=== PATIENT | female | born 1960 | race Caucasian/White ===

== ENCOUNTER 2019-07-31 12:18 | Outpatient (CLI) | payer BC, SELFPAY ==
[2019-07-31 13:30] LABS: Basophils Percent Auto 0.4 % (0.2-1.2); Eosinophils Absolute Auto 0.1 K/mm3 (0-0.3); Eosinophils Percent Auto 2.5 % (0-4.4); Hematocrit 43.9 % (37.0-47.0); Hemoglobin 15.3 g/dL (12.0-15.0); Immature Granulocyte Absolute 0.01 K/mm3 (0.00-0.031); Immature Granulocyte Percent A 0.2 % (0-0.5); Lymphocytes Absolute Auto 1.72 K/mm3 (0.9-3.2); Lymphocytes Percent Auto 38.5 % (18.3-44.2); Mean Corpuscular HGB Conc 34.9 g/dl (32-36); Mean Corpuscular Hemoglobin 31.5 pg (26-34); Mean Corpuscular Volume 90.5 fl (80-100); Mean Platelet Volume 8.9 fl (7.4-10.4); Monocytes Absolute Auto 0.5 K/mm3 (0.1-0.6); Monocytes Percent Auto 11.2 % (2.6-8.5); Neutrophils Absolute Auto 2.1 K/mm3 (1.3-6.7); Neutrophils Percent Auto 47.2 % (45.5-73.1); Platelet Count Result 234 k/mm3 (150-375); Red Blood Count 4.85 M/mm3 (4.2-5.4); Red Cell Distribution Width 12.6 % (11.5-14.5); White Blood Count 4.5 K/mm3 (4.5-10.0)
[2019-07-31 13:43] LABS: Albumin Level 4.7 g/dL (3.5-5.1); Blood Urea Nitrogen 19 mg/dL (7-17); Calcium 9.5 mg/dL (8.4-10.2); Carbon Dioxide 27 mmol/L (22-30); Chloride 95 mmol/L (98-107); Estimated Glomerular Filt Rate > 60; Glucose 89 mg/dL (65-105); INR 0.9; Potassium 3.6 mmol/L (3.4-5.0); Prothrombin Time 12.1 Seconds (11.1-14.7); Sodium 135 mmol/L (137-145)
[2019-07-31 13:44] LABS: Partial Thromboplastin Time 29.2 SECONDS (22.3-36.8)
[2019-07-31 13:45] LABS: Urine Cotinine NEGATIVE
[2019-07-31 13:50] LABS: Hemoglobin A1C 5.4 % (<5.7)
[2019-07-31 13:58] LABS: Add Urine Microscopic? YES; Appearance Urine Clear (Clear); Bilirubin Urine Negative (Negative); Blood Urine Negative (Negative); Color Urine Yellow (Yellow); Glucose Urine UA Negative (Negative); Ketones Urine 1+ mg/dL (Negative); Leukocyte Esterase Ur Negative LEU/UL (Negative); Nitrate Urine Negative (Negative); Protein Urine Negative (Negative); Urobilinogen Urine Negative mg/dL (<2.0)
[2019-07-31 14:02] LABS: Specific Grav Ur 1.032 (1.001-1.035)
== END 2019-07-31 12:19 | disposition home or self-care (01) ==
PROVIDERS: PCP Internal Medicine; Visit Provider Orthopaedic Surgery
DX: M17.10 Unilateral primary osteoarthritis, unspecified knee (principal)
CPT/HCPCS: 36415; 80048; 80307; 81001; 82040; 83036; 85025; 85610; 85730; 87081

== ENCOUNTER → 2019-08-05 06:45 | Outpatient (CLI) | payer BC, SELFPAY ==
--- NOTE | ~2019-08-05 | MM_ITS ---
EXAMINATION: MM screening tami BI w alexandre HISTORY: Screening TECHNIQUE: Craniocaudal and mediolateral oblique 3-D tomosynthesis images were obtained and synthetic 2-D images were generated. CAD analysis was submitted and interpreted. COMPARISON: 09/10/2014 bilateral digital screening mammogram BREAST PARENCHYMAL COMPOSITION: There are scattered areas of fibroglandular density. FINDINGS: Occasional bilateral punctate benign microcalcifications. There is no evidence of suspiciou s mass, calcification, or architectural distortion to suggest malignancy in either breast. There has been no suspicious interval change. IMPRESSION: 1. No mammographic evidence of malignancy. 2. Recommend routine screening mammography in one year. BI-RADS Category 2: Benign finding(s). Reviewed, dictated and finalized at location A. SHING INSPECTOR
== END ==
PROVIDERS: PCP Internal Medicine; Visit Provider Internal Medicine
DX: Z12.31 Encounter for screening mammogram for malignant neoplasm of breast (principal)
CPT/HCPCS: 77063; 77067

== ENCOUNTER 2019-08-21 13:24 | Inpatient (IN) | payer BC, SELFPAY ==
[2019-07-31 12:43] VITALS: BP 142/72; PULSE 68; RESP 18; TEMP 37.8; O2SAT 98; BMI 26.8
[2019-08-21] VITALS (12 sets, daily range): BP systolic 121–145; BP diastolic 50–87; PULSE 80–97; RESP 12–18; TEMP 36.7–37.3; O2SAT 94–100
--- NOTE | ~2019-08-21 | XR_ITS ---
EXAMINATION: XR knee RT 2V DATE: 08/21/2019 12:52 INDICATION: Right knee arthroplasty. Postop. TECHNIQUE: 2 views of right knee were obtained. COMPARISON: Right knee radiographs 05/10/2019 FINDINGS: There is a total right knee arthroplasty without patellar resurfacing in near-anatomic alig nment. No fracture. There is a tiny osteophyte of the patella. There is gas in the knee joint and sof t tissues, consistent with recent surgery. Anterior skin ana laura are noted. IMPRESSION: 1. Total right knee arthroplasty in near-anatomic alignment. Reviewed, dictated and finalized at location A. ETING RESEARCHER
--- NOTE | 2019-08-21 07:38 | WPDHPUPDATE1 ---
History and Physical Update Update Date/Time: 08/21/19 07:38 History and Physical has been reviewed, including an updated exam of the patient. There are NO changes in the patient's condition. Risks, benefits, and alternatives have been discussed and questions answered. Patient agrees to proceed with procedure.
--- NOTE | 2019-08-21 08:31 | WPDANESEPPF ---
Anes - Initial Pre Proc Eval Procedure: Operation Date: 08/21/19 10:30 Proposed Procedures p Right Total Knee Arthroplasty - Bertrand Santos MD Date/Time: 08/21/19 08:31 Surgeon: Bertrand Santos MD Pre Op Diagnosis: Right Knee DJD Patient Data Age: 58 Gender: F Height: 1.57 m Weight: 66.5 kg Last Vital Signs Temp 37.8 C H 07/31/19 12:43 Pulse 68 07/31/19 12:43 Resp 18 07/31/19 12:43 BP 142/72 H 07/31/19 12:43 Pulse Ox 98 07/31/19 12:43 Allergies Allergy/AdvReac Type Severity Reaction Status Date / Time No Known Allergies Allergy Unknown Verified 08/21/19 09:18 Home Medications Medication Instructions Recorded Confirmed Type naproxen sodium 220 mg tablet 220 mg PO BID PRN 05/10/19 08/21/19 History tramadol 50 mg tablet 50 mg PO Q6H PRN #30 tablet 05/10/19 08/21/19 Rx calcium carbonate 600 mg calcium 600 mg PO DAILY 07/03/19 08/21/19 History (1,500 mg) tablet duloxetine 20 mg capsule,delayed 20 mg PO BID #60 cap 07/03/19 08/21/19 Rx release ferrous sulfate 325 mg (65 mg 325 mg PO DAILY 07/03/19 08/21/19 History iron) tablet multivitamin 1 tablet PO DAILY 07/03/19 08/21/19 History chlorhexidine gluconate 4 % 1 applic TOPICAL ONCE #237 ml 07/29/19 08/21/19 Rx topical liquid ECG: Date of Service: 07/08/19 Procedure(s): CA 12 lead EKG Accession Number(s): [id number] cc: ~ Measurements Intervals [place] Rate: 62 P: 67 MS: 166 QRS: 50 QRSD: 82 T: 54 QT: 410 QTc: 418 Interpretive Statements SINUS RHYTHM NORMAL ECG Electronically Signed On 07-08-2019 7:59:58 [employer] by Raffy Hope D.O. Dictated By: Raffy Hope DO 07/08/19 0753 Patient hx anesthesia problems: none Family hx anesthesia problems: none PMFSH Social History Social History Smoking status: Former smoker Smoking end date: 06/26/07 Alcohol intake: current Anes - Eval Final PreProcedure Day of Procedure 08/21/19 08:31 Patient weight: overweight Heart: regular rate and rhythm Lungs: clear to auscultation and normal air movement Airway: Mallampati scale class II Neurological: alert and oriented Last oral intake: >/= 8 hours ASA classification: II Emergent: no Anesthetic plan: proceed Anesthesia type and monitoring: general LMA Informed Consent: The patient's anesthetic plan and its attendant risks and benefits were discussed with the patient/family/POA. Questions were solicited and answers provided to the satisfaction of the patient/family/POA.
[2019-08-21] MEDS: LACTATED RINGERS 1,000 ML 30 ML IV CONT ×2 (08:40→12:40)
[2019-08-21] MEDS: IBUPROFEN IV 800 MG/200 ML 800 MG/200 ML BAG 400 MG IVPB (08:40)
--- NOTE | 2019-08-21 09:27 | WPDANESPNB ---
Anes - Peripheral Nerve Block Date/Time: 08/21/19 09:27 I have discussed with the patient/family/POA the placement of a peripheral nerve block for post-operative pain management, including associated risks, benefits, complications, and side effects. Alternative methods of post-operative analgesia were detailed. Questions were solicited and answers provided to the satisfaction of the patient/family/POA. Time-Out: A pre-procedural Time-Out was completed immediately before starting the procedure and confirmed: Patient Identification, Site, Procedure, Patient Position and the Availability of Requisite Equipment. Clinical Indications: Acute post-operative pain management requested by the operative surgeon. Nerve Block Insertion Note Anes-nerve block: femoral right Patient position: supine Skin prep: chlorhexidine Needle: 22 gauge, stimulating, insulated echogenic needle. Needle length: 80 mm Technique: ultrasound (in plane) Injectate: bupivacaine 0.5% with epi 5 mcg/ml (30cc) Observations: tolerated well Complications: none Procedure start time:: 1010 Procedure end time:: 1014
[2019-08-21] MEDS: ceFAZolin 2 GM/D5W 50 ML 2 GM/50 ML BAG IVPB ×2 (10:53→19:45)
--- NOTE | 2019-08-21 12:40 | PM.OP ---
Procedure Note - Brief Procedure Note - Brief Date of procedure: 08/21/19 Pre-op diagnosis: Right Knee DJD Post-op diagnosis: same Procedure performed: R TKA Anesthesia: GETA Surgeon: Bertrand Santos MD Estimated blood loss (mL): 100 Complications: No immediate complications Condition: stable Disposition: PACU
--- NOTE | 2019-08-21 13:35 | SUR.PHASEI ---
1320 - family updated and sent to floor
--- NOTE | 2019-08-21 13:51 | OP_ITS ---
DATE OF PROCEDURE: 08/21/2019 PREOPERATIVE DIAGNOSIS: Right knee degenerative disc disease. POSTOPERATIVE DIAGNOSIS: Right knee degenerative disc disease. PROCEDURES: Right total knee arthroplasty. ANESTHESIA: General. COMPLICATIONS: None. INDICATIONS: This is a 58-year-old female, who has a valgus deformity and lateral compartment arthrosis. She was indicated for right total knee arthroplasty. DESCRIPTION OF PROCEDURE: The patient was taken to the operating room in stable condition and placed in supine position. General anesthesia was induced and then the right lower extremity was prepped and draped sterilely from the toes to the thigh. A midline skin incision was made. Medial parapatellar arthrotomy was made. The patella was everted. There was severe arthrosis in the lateral compartment, minimal in the medial compartment and the patellofemoral compartment. IM kelly was placed in the femur. Distal femoral cut was made at 5 degrees of valgus, removing approximately 9 mm of bone from the high side of the femur and then the knee was sized to a 60, so cutting block then was placed and then that was placed in 3 degrees of external rotation just happened to be in alignment with [place] line as well. The anterior, posterior, and chamfer cuts were made to the femur. Next, the IM kelly was placed in tibia and a transtibial cut was made along the long axis of the tibia removing approximately 10 mm of bone from the high side of the tibia. The cut was very flushed. The secondary planer was used and it showed that it was a smooth cut. Posterior osteophytes were removed from the posterior femoral condyles. A #60 tibial trial was placed. The trial passed the 4-corner test and the implant was flushed. The component was aligned with the 1/3rd medial aspect of the tibial tubercle, and then a 60 femoral trial was placed and then a 10 CR poly trial was placed. The knee came out to full extension. There was good excursion. There was good stability in the anterior-posterior plane and there was good stability to varus valgus stress in both flexion and extension. The patella tracked without any tilt. The trial implants were removed and the wounds were washed thoroughly and then a #67 tibial component was press-fit into place. The cut surface was flushed with the implant. The implant was rotated into the 1/3rd medial aspect of the tibial tubercle. The femoral component then which was a #60 was also was press-fit into place. The cut was excellent. It was flushed with the implant. Then a 10 CR poly implant was placed and it was locked in place. The knee was taken through range of motion. The knee came out to full extension. There was good stability with varus valgus stress in both flexion and extension. There was good anterior-posterior stability and there was no patellar tilt with tracking of the patella. The knee joint was irrigated thoroughly. The tourniquet was deflated. Bleeders were cauterized. The deep fascial layer was approximated with #1 Vicryl subcutaneous 2-0 Vicryl. The skin was approximated with ana laura. Wounds were washed, placed sterile dressing. The patient was extubated. Fady I MT: Kari
[2019-08-21 14:58] LABS: Estimated CRCL calculation 69 ml/min; Estimated Glomerular Filt Rate > 60
[2019-08-21] MEDS: CELECOXIB 200 MG CAPSULE PO (18:13)
[2019-08-21] MEDS: DIAZEPAM 5 MG TABLET PO (19:48)
[2019-08-22 02:00] VITALS: BP 108/61; PULSE 81; RESP 20; TEMP 36.6; O2SAT 93
[2019-08-22] MEDS: ceFAZolin 2 GM/D5W 50 ML 2 GM/50 ML BAG IVPB ×2 (02:36→11:08)
[2019-08-22 06:00] VITALS: BP 114/66; PULSE 71; RESP 16; TEMP 36.2; O2SAT 95
[2019-08-22 06:19] LABS: Basophils Percent Auto 0.2 % (0.2-1.2); Eosinophils Percent Auto 0.3 % (0-4.4); Hematocrit 34.7 % (37.0-47.0); Hemoglobin 11.9 g/dL (12.0-15.0); Immature Granulocyte Absolute 0.07 K/mm3 (0.00-0.031); Immature Granulocyte Percent A 0.7 % (0-0.5); Lymphocytes Absolute Auto 1.62 K/mm3 (0.9-3.2); Lymphocytes Percent Auto 15.3 % (18.3-44.2); Mean Corpuscular HGB Conc 34.3 g/dl (32-36); Mean Corpuscular Hemoglobin 31.6 pg (26-34); Mean Corpuscular Volume 92.3 fl (80-100); Mean Platelet Volume 8.6 fl (7.4-10.4); Monocytes Absolute Auto 0.9 K/mm3 (0.1-0.6); Monocytes Percent Auto 8.6 % (2.6-8.5); Neutrophils Percent Auto 74.9 % (45.5-73.1); Platelet Count Result 240 k/mm3 (150-375); Red Blood Count 3.76 M/mm3 (4.2-5.4); Red Cell Distribution Width 12.6 % (11.5-14.5); White Blood Count 10.6 K/mm3 (4.5-10.0)
[2019-08-22 08:19] LABS: Blood Urea Nitrogen 13 mg/dL (7-17); Calcium 8.8 mg/dL (8.4-10.2); Carbon Dioxide 30 mmol/L (22-30); Chloride 96 mmol/L (98-107); Estimated CRCL calculation 80 ml/min; Estimated Glomerular Filt Rate > 60; Glucose 99 mg/dL (65-105); Potassium 3.9 mmol/L (3.4-5.0); Sodium 138 mmol/L (137-145)
[2019-08-22 08:25] VITALS: BP 115/55; PULSE 87; RESP 16; TEMP 37.1; O2SAT 99
[2019-08-22] MEDS: CELECOXIB 200 MG CAPSULE PO ×2 (08:41→16:52)
[2019-08-22] MEDS: ASPIRIN 325 MG ENTERIC TABLET 650 MG PO (08:41)
[2019-08-22] MEDS: DIAZEPAM 5 MG TABLET PO (08:51)
--- NOTE | 2019-08-22 13:28 | P.PNAN_ITS ---
Anes - Prog Note Post-Op Date/Time: 08/22/19 13:28 Cardiovascular status: normal Respiratory status: normal Airway patency: baseline Mental status: baseline Post-Op hydration status: normal Vital Signs: Last Vital Signs Temp 37.1 C 08/22/19 08:25 Pulse 87 08/22/19 08:25 Resp 16 08/22/19 08:25 BP 115/55 L 08/22/19 08:25 Pulse Ox 99 08/22/19 08:25 Pain Score (VAS): 0/10. Patient resting in bed at time of assessment, appears comfortable. I/O: Intake & Output 08/21/19 08/22/19 08/22/19 23:59 07:59 15:59 Intake Total 550 650 50 Output Total 1000 Balance 550 -350 50 Laboratory Tests 08/22/19 06:11 08/22/19 07:49 08/21/19 08/22/19 08/22/19 14:42 06:11 07:49 WBC 10.6 H RBC 3.76 L Hgb 11.9 L D Hct 34.7 L MCV 92.3 MCH 31.6 MCHC 34.3 RDW 12.6 Plt Count 240 MPV 8.6 Immature Gran % (Auto) 0.7 H Neut % (Auto) 74.9 H Lymph % (Auto) 15.3 L [place] % (Auto) 8.6 H Eos % (Auto) 0.3 Baso % (Auto) 0.2 Lymph # (Auto) 1.62 [place] # (Auto) 0.9 H Eos # (Auto) 0.0 Baso # (Auto) 0.0 Abs Immat Gran (auto) 0.07 H Absolute Neuts (auto) 8.0 H Absolute Nucleated RBC 0.0 Nucleated RBC % 0.0 Sodium 138 Potassium 3.9 Chloride 96 L Carbon Dioxide 30 BUN 13 D Creatinine 0.70 0.60 L Estim Creat Clear Calc 69 80 Estimated GFR > 60 > 60 Glucose 99 Calcium 8.8 Post-procedural complaints: none Patient Feedback: Patient satisfied with anesthetic care.
[2019-08-22 15:12] VITALS: BP 117/74; PULSE 54; RESP 16; TEMP 36.9; O2SAT 93
--- NOTE | 2019-08-22 17:17 | PM.PNORT ---
Progress Note: A&P Additional Plan POD 1 DOING WELL. CONTINUE PT Subjective Subjective Date/Time Seen: 08/22/19 17:17POD 1 DOING WELL. 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 Objective Data Vital Signs Vital Signs: Vital Signs - 24 hr 08/21/19 21:10 08/22/19 02:00 08/22/19 06:00 Temperature 36.9 C 36.6 C 36.2 C L Pulse Rate 80 81 71 Respiratory Rate 16 20 16 Blood Pressure 122/66 108/61 114/66 Pulse Oximetry 95 93 95 08/22/19 08:25 08/22/19 15:12 Temperature 37.1 C 36.9 C Pulse Rate 87 54 L Respiratory Rate 16 16 Blood Pressure 115/55 L 117/74 Pulse Oximetry 99 93 Intake/Output Intake/Output: Intake & Output 08/19/19 08/20/19 08/21/19 08/22/19 23:59 23:59 23:59 23:59 Intake Total 1050 700 Output Total 1000 Balance 1050 -300 Meds/Results Medications: Active Medications Generic Name Dose Route Start Last Admin Trade Name Freq PRN Reason Stop Dose Admin Acetaminophen 1,000 mg 08/21/19 14:02 Tylenol Tablet PO Q6H PRN Mild Pain (1-3) Aspirin 650 mg 08/22/19 09:00 08/22/19 08:41 Aspirin Ec PO 650 mg DAILY TOMMY Administration Celecoxib 200 mg 08/21/19 17:00 08/22/19 16:52 Celebrex PO 200 mg BIDWM TOMMY Administration Diazepam 5 mg 08/21/19 14:02 08/22/19 08:51 Valium Po PO 5 mg Q8H PRN Administration Spasms Diphenhydramine HCl 25 mg 08/21/19 14:02 Benadryl Inj IV PUSH Q6H PRN Itching Morphine Sulfate 4 mg 08/21/19 14:02 Morphine Sulfate Inj IV PUSH Q2H PRN Breakthrough pain rated 7-10 Naloxone HCl 0.1 mg 08/21/19 14:02 Narcan IV PUSH Q2M PRN Opiate Reversal Ondansetron HCl 4 mg 08/21/19 14:02 Zofran Inj IV PUSH Q4H PRN Nausea And Vomiting Oxycodone/Acetaminophen 1 tablet 08/21/19 14:02 08/22/19 16:52 Percocet 5-325 Mg PO 1 tablet Q4H PRN Administration Pain Rated 4-6 Radiology Results: ITS Impressions Knee X-Ray 08/21/19 13:05 IMPRESSION: 1. Total right knee arthroplasty in near-anatomic alignment. Labs Labs: Laboratory Results - last 24 hr 08/22/19 08/22/19 06:11 07:49 WBC 10.6 H RBC 3.76 L Hgb 11.9 L D Hct 34.7 L MCV 92.3 MCH 31.6 MCHC 34.3 RDW 12.6 Plt Count 240 MPV 8.6 Immature Gran % (Auto) 0.7 H Neut % (Auto) 74.9 H Lymph % (Auto) 15.3 L [place] % (Auto) 8.6 H Eos % (Auto) 0.3 Baso % (Auto) 0.2 Lymph # (Auto) 1.62 [place] # (Auto) 0.9 H Eos # (Auto) 0.0 Baso # (Auto) 0.0 Abs Immat Gran (auto) 0.07 H Absolute Neuts (auto) 8.0 H Absolute Nucleated RBC 0.0 Nucleated RBC % 0.0 Sodium 138 Potassium 3.9 Chloride 96 L Carbon Dioxide 30 BUN 13 D Creatinine 0.60 L Estim Creat Clear Calc 80 Estimated GFR > 60 Glucose 99 Calcium 8.8
[2019-08-22] MEDS: MORPHINE SULFATE 4 MG/ML INJ IV PUSH (20:20)
[2019-08-22 21:16] VITALS: PULSE 54; RESP 16; O2SAT 93
[2019-08-22 22:20] VITALS: BP 128/66; PULSE 89; RESP 20; TEMP 37.3; O2SAT 97
[2019-08-23 05:55] VITALS: BP 117/66; PULSE 90; RESP 20; TEMP 37.3; O2SAT 95
[2019-08-23] MEDS: ASPIRIN 325 MG ENTERIC TABLET 650 MG PO (08:52)
[2019-08-23] MEDS: MORPHINE SULFATE 4 MG/ML INJ IV PUSH (08:52)
[2019-08-23] MEDS: DIAZEPAM 5 MG TABLET PO (08:52)
[2019-08-23] MEDS: CELECOXIB 200 MG CAPSULE PO ×2 (09:00→17:18)
[2019-08-23 10:12] VITALS: BP 129/67; PULSE 96; RESP 18; TEMP 37.2; O2SAT 95
--- NOTE | 2019-08-23 13:03 | PM.PNORT ---
Progress Note: A&P Additional Plan POD 2 DOING WELL. OK TO DC HOME. F/U IN 3 WEEKS. 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 Objective Data Vital Signs Vital Signs: Vital Signs - 24 hr 08/22/19 15:12 08/22/19 21:16 08/22/19 22:20 Temperature 36.9 C 37.3 C Pulse Rate 54 L 54 L 89 Respiratory Rate 16 16 20 Blood Pressure 117/74 128/66 Pulse Oximetry 93 93 97 08/23/19 05:55 08/23/19 10:12 Temperature 37.3 C 37.2 C Pulse Rate 90 96 Respiratory Rate 20 18 Blood Pressure 117/66 129/67 Pulse Oximetry 95 95 Intake/Output Intake/Output: Intake & Output 08/20/19 08/21/19 08/22/19 08/23/19 23:59 23:59 23:59 23:59 Intake Total 1050 2350 900 Output Total 2250 900 Balance 1050 100 0 Meds/Results Medications: Active Medications Generic Name Dose Route Start Last Admin Trade Name Freq PRN Reason Stop Dose Admin Acetaminophen 1,000 mg 08/21/19 14:02 Tylenol Tablet PO Q6H PRN Mild Pain (1-3) Aspirin 650 mg 08/22/19 09:00 08/23/19 08:52 Aspirin Ec PO 650 mg DAILY TOMMY Administration Celecoxib 200 mg 08/21/19 17:00 08/23/19 09:00 Celebrex PO 200 mg BIDWM TOMMY Administration Diazepam 5 mg 08/21/19 14:02 08/23/19 08:52 Valium Po PO 5 mg Q8H PRN Administration Spasms Diphenhydramine HCl 25 mg 08/21/19 14:02 Benadryl Inj IV PUSH Q6H PRN Itching Morphine Sulfate 4 mg 08/21/19 14:02 08/23/19 08:52 Morphine Sulfate Inj IV PUSH 4 mg Q2H PRN Administration Breakthrough pain rated 7-10 Naloxone HCl 0.1 mg 08/21/19 14:02 Narcan IV PUSH Q2M PRN Opiate Reversal Ondansetron HCl 4 mg 08/21/19 14:02 Zofran Inj IV PUSH Q4H PRN Nausea And Vomiting Oxycodone/Acetaminophen 1 tablet 08/21/19 14:02 08/23/19 06:50 Percocet 5-325 Mg PO 1 tablet Q4H PRN Administration Pain Rated 4-6 Radiology Results: ITS Impressions Knee X-Ray 08/21/19 13:05 IMPRESSION: 1. Total right knee arthroplasty in near-anatomic alignment.
--- NOTE | 2019-08-23 13:15 | PM.DS ---
DS: Diagnosis Admitting Diagnosis Admitting Diagnosis: Unilateral primary osteoarthritis, unspecified knee DS: Summary Time Spent with Patient Time attestation: Total time spent providing and/or coordinating discharge services: Discharge Plan Discharge Attending physician on discharge: Bertrand Santos Discharging Clinician: Bertrand Santos Anticipated Discharge Date/Time: 08/23/19 13:07 Patient Disposition: Home Health Service Activity: may shower, no driving and follow weight bearing status Diet: as tolerated Wound Care Instructions: keep dressing dry Discharge Instructions: Per Care Coordination Patient will be followed by [facility] nursing to monitor for healing and to monitor for infection, physical therapy, occupational therapy [phone] Patient Instructions: Antibiotic Form Stand Alone Forms: General Discharge Information Follow-up/Referrals: Bertrand Santos MD [Physician] - 3 Weeks Discharge Medications: New oxycodone-acetaminophen [Percocet] 7.5-325 mg tablet 1 - 2 tablet PO Q6H PRN (Reason: pain) Qty: 60 RF: 0 aspirin 325 mg Tablet,Delayed Release (Dr/Ec) 650 mg PO DAILY Qty: 28 RF: 0 Continued naproxen sodium [Aleve] 220 mg tablet 220 mg PO BID PRN (Reason: Pain) RF: 0 tramadol 50 mg tablet 50 mg PO Q6H PRN (Reason: pain) Qty: 30 RF: 0 multivitamin Tablet 1 tablet PO DAILY RF: 0 ferrous sulfate [Jaky-Time] 325 mg (65 mg iron) tablet 325 mg PO DAILY RF: 0 calcium carbonate [Calcium 600] 600 mg calcium (1,500 mg) tablet 600 mg PO DAILY RF: 0 duloxetine [Cymbalta] 20 mg capsule,delayed release(DR/EC) 20 mg PO BID Qty: 60 RF: 2 Date of admission: 08/21/19 13:24 Primary Care Provider: Roberto Horne Admitting Provider: Bertrand Santos Attending physician on admission: Bertrand Santos
--- NOTE | 2019-08-23 13:16 | PM.DS ---
DS: Diagnosis Admitting Diagnosis Admitting Diagnosis: Unilateral primary osteoarthritis, unspecified knee DS: Summary Time Spent with Patient Time attestation: Total time spent providing and/or coordinating discharge services: Discharge Plan Discharge Attending physician on discharge: Bertrand Santos Discharging Clinician: Bertrand Santos Anticipated Discharge Date/Time: 08/23/19 13:07 Patient Disposition: Home Health Service Activity: may shower, no driving and follow weight bearing status Diet: as tolerated Wound Care Instructions: keep dressing dry Discharge Instructions: Per Care Coordination Patient will be followed by [facility] nursing to monitor for healing and to monitor for infection, physical therapy, occupational therapy [phone] Patient Instructions: Antibiotic Form Stand Alone Forms: General Discharge Information Follow-up/Referrals: Bertrand Santos MD [Physician] - 3 Weeks Discharge Medications: New oxycodone-acetaminophen [Percocet] 7.5-325 mg tablet 1 - 2 tablet PO Q6H PRN (Reason: pain) Qty: 60 RF: 0 aspirin 325 mg Tablet,Delayed Release (Dr/Ec) 650 mg PO DAILY Qty: 28 RF: 0 Continued naproxen sodium [Aleve] 220 mg tablet 220 mg PO BID PRN (Reason: Pain) RF: 0 tramadol 50 mg tablet 50 mg PO Q6H PRN (Reason: pain) Qty: 30 RF: 0 multivitamin Tablet 1 tablet PO DAILY RF: 0 ferrous sulfate [Jaky-Time] 325 mg (65 mg iron) tablet 325 mg PO DAILY RF: 0 calcium carbonate [Calcium 600] 600 mg calcium (1,500 mg) tablet 600 mg PO DAILY RF: 0 duloxetine [Cymbalta] 20 mg capsule,delayed release(DR/EC) 20 mg PO BID Qty: 60 RF: 2 Date of admission: 08/21/19 13:24 Primary Care Provider: Roberto Horne Admitting Provider: Bertrand Santos Attending physician on admission: Bertrand Santos
[2019-08-23 14:00] VITALS: BP 135/60; PULSE 104; RESP 16; TEMP 37.9; O2SAT 96
--- NOTE | 2019-09-19 13:54 | PM.DS ---
DS: Diagnosis Admitting Diagnosis Admitting Diagnosis: Unilateral primary osteoarthritis, unspecified knee Discharge Diagnosis (1) Status post right knee replacement: Code(s): Z96.651 - Presence of right artificial knee joint Status: Acute (2) Primary osteoarthritis of right knee: Code(s): M17.11 - Unilateral primary osteoarthritis, right knee Status: Acute DS: Summary Time Spent with Patient Time attestation: Total time spent providing and/or coordinating discharge services: Discharge Plan Discharge Attending physician on discharge: Bertrand Santos Consulting providers: David Garcia V. Discharging Clinician: Bertrand Santos Anticipated Discharge Date/Time: 08/23/19 13:07 Patient Disposition: Home Health Service Activity: may shower, no driving and follow weight bearing status Diet: as tolerated Wound Care Instructions: keep dressing dry Discharge Instructions: Per Care Coordination Patient will be followed by [facility] nursing home to monitor for healing and to monitor for infection, physical therapy, occupational therapy [phone] Patient Instructions: Antibiotic Form, Pain Management (DC), Knee Replacement (DC) Stand Alone Forms: General Discharge Information Follow-up/Referrals: Bertrand Santos MD [Physician] - 3 Weeks Discharge Medications: Continued multivitamin Tablet 1 tablet PO DAILY RF: 0 ferrous sulfate [Jaky-Time] 325 mg (65 mg iron) tablet 325 mg PO DAILY RF: 0 calcium carbonate [Calcium 600] 600 mg calcium (1,500 mg) tablet 600 mg PO DAILY RF: 0 duloxetine [Cymbalta] 20 mg capsule,delayed release(DR/EC) 20 mg PO BID Qty: 60 RF: 2 No Action oxycodone-acetaminophen [Percocet] 7.5-325 mg tablet 1 - 2 tablet PO Q6H PRN (Reason: pain) Qty: 30 RF: 0 Date of admission: 08/21/19 13:24 Primary Care Provider: Roberto Horne Admitting Provider: Bertrand Santos Discharge Date/Time: 08/23/19 17:45 Attending physician on admission: Bertrand Santos
== END 2019-08-23 17:45 | disposition home health service (06) | DRG 470 ==
LOC: ANH3MEDSUR 14:11
PROVIDERS: Admitting Provider Orthopaedic Surgery; PCP Internal Medicine; Visit Provider Orthopaedic Surgery
PROC: 0SRC0JA Replacement of Right Knee Joint with Synthetic Substitute, Uncemented, Open Approach (ICD-10-PCS; CPT 27447; principal; 2019-08-21 10:30)
DX: M17.11 Unilateral primary osteoarthritis, right knee (principal); Z87.891 Personal history of nicotine dependence
CPT/HCPCS: 36415; 73560; 80048; 82565; 85025; 86850; 86900; 86901; 97110; 97116; 97161; 97165; 97530; 97535; A9270; C1713; C1776; J0171; J0690; J1100; J1741; J2250; J2270; J2405; J2704; J2795; J3010; J7120

== ENCOUNTER 2020-05-28 23:03 | Emergency (ER) | payer BC, SELFPAY ==
--- NOTE | ~2020-05-28 | XR_ITS ---
EXAMINATION: XR chest 1V portable DATE: 05/28/2020 23:51 INDICATION: Cough, fever and shortness of breath TECHNIQUE: frontal view of the chest was obtained. COMPARISON: None FINDINGS: Thin linear bands of discoid atelectasis/scarring in the right lower lung zone and at the left costop hrenic angle. No other airspace opacities, pulmonary edema, pleural effusion or pneumothorax. The car diomediastinal silhouette is normal. Mild thoracic dextrocurvature. IMPRESSION: 1. Thin linear discoid atelectasis/scarring at the bilateral lung bases. Reviewed, dictated and finalized at location A. [employer]
[2020-05-28 23:13] VITALS: BP 141/83; PULSE 117; RESP 18; TEMP 37.9; O2SAT 96
--- NOTE | 2020-05-28 23:16 | ED.FEVER ---
HPI - Fever General Chief Complaint: Fever Stated Complaint: 103 temp, COVID positive 04/17 Time Seen by Provider: 05/28/20 23:15 History of Present Illness HPI Narrative: 59 yo female w/ h/o COVID-19 presents to the ED for URI symptoms. She was diagnosed with COVID-19 on 04/17. She had since recovered, but since this morning she has very similar symptoms again. She has sore throat, headache, fever, cough, nausea. Related Data Home Medications Medication Instructions Recorded Confirmed calcium carbonate 600 mg calcium 600 mg PO DAILY 07/03/19 03/18/20 (1,500 mg) tablet multivitamin 1 tablet PO DAILY 07/03/19 03/18/20 Allergies Allergy/AdvReac Type Severity Reaction Status Date / Time No Known Allergies Allergy Unknown Verified 04/14/20 15:49 Review of Systems Constitutional: Constitutional: Reports chills and Reports fever(s) ENT: Reports sore throat Respiratory: Respiratory: Reports chest congestion and Reports cough Gastrointestinal: Gastrointestinal: Denies abdominal pain, Reports nausea and Denies vomiting Genitourinary: Genitourinary: Denies dysuria Musculoskeletal: Musculoskeletal: Reports myalgias Neurologic: Reports headache(s) [facility] Past Medical History Medical History (Updated 05/29/20 @ 01:17 by Sergio Mcmillan MD) Body mass index (bmi) 27.0-27.9, adult (07/12/18) Carpal tunnel syndrome Degenerative joint disease of knee Depression Primary osteoarthritis of right knee Right knee pain Vitiligo Surgical History Surgical History History of carpal tunnel release Family History Family History Mother Hypertension Family history of diabetes mellitus in first degree relative Father Hypertension Family history of sleep apnea Family history of chronic obstructive pulmonary disease Sibling Patient's brother is Hypertension Family history of chronic obstructive pulmonary disease Other Diabetes mellitus Social History Social History Smoking status: Former smoker Smoking end date: 06/26/07 Alcohol intake: current Drinks per week: 20 Substance use type: marijuana Gender identity (if verbalized by the patient): Female Spiritual care concerns: No Agree to blood products: Yes Exam Const: General: no acute distress and alert Orientation/consciousness: patient oriented x3 HENMT: Other: Mild erythema of posterior oropharynx Neck: Neck: normal visual inspection Resp: Effort & Inspection: tachypneic Auscultation: crackles Cardio: Rate: tachycardic Rhythm: regular rhythm GI: GI Palp: Yes Soft to palpation and No Tenderness to palpation present (GI) Skin: General skin exam: normal color Neuro: General: patient oriented x3, moves all extremities and no focal motor deficits Speech: normal speech Extrem: General: normal to inspection Course Vital Signs Vital signs: Vital Signs Temperature 37.9 C H 05/28/20 23:13 Pulse Rate 117 H 05/28/20 23:13 Respiratory Rate 18 05/28/20 23:13 Blood Pressure 141/83 H 05/28/20 23:13 Pulse Oximetry 96 05/28/20 23:13 Temperature 37.9 C H 05/28/20 23:13 Pulse Rate 96 05/29/20 01:13 Respiratory Rate 16 05/29/20 01:13 Blood Pressure 136/81 05/29/20 01:13 Pulse Oximetry 94 05/29/20 01:13 MDM - Fever MDM Narrative Medical decision making narrative: Feeling much better after treatment. No indication for admission. COVID results pending. Differential Diagnosis Differential diagnosis: Likely community acquired pneumonia, viral infection, sepsis, influenza and other (Strep, COVID-19) Medical Records Attestation: I reviewed the patient's medical records. Lab Data Attestation: I reviewed the patient's lab results. Result diagrams: 05/28/20 23:50 05/28/20 23:50 Labs: Lab Resu
[2020-05-29 00:03] LABS: Basophils Percent Auto 0.2 % (0.2-1.2); Eosinophils Absolute Auto 0.1 K/mm3 (0-0.3); Eosinophils Percent Auto 0.7 % (0-4.4); Hematocrit 39.3 % (37.0-47.0); Hemoglobin 13.7 g/dL (12.0-15.0); Immature Granulocyte Absolute 0.03 K/mm3 (0.00-0.031); Immature Granulocyte Percent A 0.3 % (0-0.5); Lymphocytes Absolute Auto 1.82 K/mm3 (0.9-3.2); Lymphocytes Percent Auto 16.5 % (18.3-44.2); Mean Corpuscular HGB Conc 34.9 g/dl (32-36); Mean Corpuscular Hemoglobin 31.7 pg (26-34); Monocytes Absolute Auto 0.5 K/mm3 (0.1-0.6); Monocytes Percent Auto 4.7 % (2.6-8.5); Neutrophils Absolute Auto 8.6 K/mm3 (1.3-6.7); Neutrophils Percent Auto 77.6 % (45.5-73.1); Platelet Count Result 247 k/mm3 (150-375); Red Blood Count 4.32 M/mm3 (4.2-5.4); Red Cell Distribution Width 12.8 % (11.5-14.5)
[2020-05-29 00:11] LABS: Prothrombin Time 13.3 Seconds (11.1-14.7)
[2020-05-29 00:12] LABS: Lactic Acid Reflex 2.6 mmol/L (0.7-2.1); Partial Thromboplastin Time 27.8 SECONDS (22.3-36.8)
[2020-05-29 00:15] LABS: Alanine Aminotransferase 19 U/L (4-35); Albumin Level 4.5 g/dL (3.5-5.1); Alkaline Phosphatase 69 U/L (38-126); Anion Gap 11 mmol/L (8-16); Aspartate Amino Transferase 25 U/L (14-36); Bilirubin,Total 0.8 mg/dL (0.2-1.3); Blood Urea Nitrogen 12 mg/dL (7-17); CRP 4.1 mg/dL (<1.0); Calcium 9.7 mg/dL (8.4-10.2); Carbon Dioxide 28 mmol/L (22-30); Chloride 100 mmol/L (98-107); Estimated CRCL calculation 43 ml/min; Estimated Glomerular Filt Rate 57; Glucose 158 mg/dL (65-105); Potassium 3.7 mmol/L (3.4-5.0); Sodium 139 mmol/L (137-145)
[2020-05-29] MEDS: METOCLOPRAMIDE HCL INJ 10 MG/2 ML VIAL IV PUSH (00:28)
[2020-05-29] MEDS: diphenhydrAMINE HCl INJ 50 MG/ML VIAL 25 MG IV PUSH (00:28)
[2020-05-29] MEDS: KETOROLAC 30 MG/ML VIAL (*BKC) IV PUSH (00:28)
[2020-05-29 00:49] LABS: Add Urine Microscopic? YES; Appearance Urine Clear (Clear); Bacteria Urine Trace /hpf; Bilirubin Urine Negative (Negative); Blood Urine Negative (Negative); Color Urine Straw (Yellow); Glucose Urine UA Negative (Negative); Ketones Urine Negative (Negative); Leukocyte Esterase Ur 1+ LEU/UL (Negative); Mucus Urine Rare /lpf; Nitrate Urine Negative (Negative); Protein Urine Negative (Negative); RBC Urine 0-2 /hpf (0-2); Specific Grav Ur 1.008 (1.001-1.035); Squamous Epithelial Cell Urine Many /hpf (Few); Urobilinogen Urine Negative mg/dL (<2.0)
[2020-05-29 01:13] VITALS: BP 136/81; PULSE 96; RESP 16; O2SAT 94
[2020-05-29 02:59] LABS: Reflex Lactic Acid Yes or No Add Lactic
[2020-05-29 19:10] LABS: SARS-CoV-2 RNA PCR Negative
== END 2020-05-29 01:24 | disposition home or self-care (01) ==
PROVIDERS: Emergency Provider Emergency Medicine; PCP Internal Medicine
DX: J40 Bronchitis, not specified as acute or chronic (principal); Z20.828 Contact with and (suspected) exposure to other viral communicable diseases; M17.11 Unilateral primary osteoarthritis, right knee; Z87.891 Personal history of nicotine dependence
CPT/HCPCS: 36415; 71045; 80053; 81001; 83605; 85025; 85610; 85730; 86140; 87040; 87081; 87635; 87804; 87880; 96374; 96375; 99284; C9803; J1100; J1200; J1885; J2765; U0003

== ENCOUNTER 2020-10-24 12:32 | Inpatient (IN) | payer BC, SELFPAY ==
[2020-10-24] VITALS (7 sets, daily range): BP systolic 126–147; BP diastolic 73–82; PULSE 78–88; RESP 14–18; TEMP 36.6–37.1; O2SAT 96–100; BMI 26.4
--- NOTE | ~2020-10-24 | XR_ITS ---
XR sm bowel follow through WS DATE: 10/25/2020 12:23 INDICATION: Small bowel obstruction TECHNIQUE: Serial images were obtained up to 2.5 hours after administration of water-soluble contrast material through the existing NG tube. COMPARISON: 10/24/2020 CT abdomen pelvis FINDINGS: There is dilatation of the proximal and mid small bowel. The distal small bowel is decompre ssed, but normal caliber. Contrast material is noted within the right and left colon by 2.5 hours. IMPRESSION: Partial mid to distal small bowel obstruction. Reviewed, dictated and finalized at Location [facility]. Reviewed, dictated and finalized at location A.
--- NOTE | ~2020-10-24 | XR_ITS ---
XR abdomen NG/feed tube insert DATE: 10/25/2020 09:49 INDICATION: NG tube placement TECHNIQUE: AP view on 10/25/2020 at 0907 hours COMPARISON: 10/25/2020 KUB FINDINGS: NG tube is present in the gastric fundus, the proximal side-port approximately 9 cm distal to the diaphragmatic hiatus. Small bowel air-fluid levels. IMPRESSION: NG tube in gastric fundus Reviewed, dictated and finalized at [facility]. Reviewed, dictated and finalized at location A. IMPRESSION: NG tube in gastric fundus
--- NOTE | ~2020-10-24 | XR_ITS ---
XR abdomen obstructive series DATE: 10/25/2020 05:54 INDICATION: Left lower quadrant abdominal pain, small bowel obstruction TECHNIQUE: Portable supine and upright AP views COMPARISON: 10/24/2020 CT abdomen pelvis FINDINGS: There are proximal and mid gas distended small bowel segments. No intraperitoneal free air. The psoas shadows are intact. No visceromegaly is evident. Contrast material is noted within the urinary bladder. Included skeletal structures are unremarkable. Mild atelectasis at the lung bases. Normal heart size. IMPRESSION: Gas distended proximal and mid small bowel, consistent with partial small bowel obstructi on noted on 10/24/2020 CT abdomen pelvis examination Reviewed, dictated and finalized at [facility]. Reviewed, dictated and finalized at location A. IMPRESSION: Gas distended proximal and mid small bowel, consistent with partial small bowel obstruction noted on 10/24/2020 CT abdomen pelvis examination
--- NOTE | ~2020-10-24 | CT_ITS ---
EXAMINATION: CT abdomen pelvis w con DATE: 10/24/2020 14:29 INDICATION: Left lower quadrant abdominal pain TECHNIQUE: Computed tomography (CT) of the abdomen and pelvis was performed with 100 cc Omnipaque 350 intravenous contrast. Automated exposure control and iterative reconstruction technique were employe d. Exam dose: 344.81 mGy-cm total exam DLP. COMPARISON: 08/15/2015 CT abdomen FINDINGS: There is minimal dependent atelectasis at the lower lobes. The lung bases otherwise are atiya ar. Normal heart size. No pericardial effusion. There is minimal ascites including small amount of fluid adjacent to the liver, in Morison's pouch, t he right and left paracolic gutters and dependent pelvis. The gallbladder is present. No gallbladder wall thickening or bile duct or pancreatic duct dilatation . No hepatic, splenic, pancreatic, and adrenal space-occupying mass lesion. 10 mm upper pole right renal cyst. No urinary tract calculus or hydroureteronephrosis is evident. There is atherosclerotic calcification but normal caliber of the abdominal aorta and iliac arteries. No intraperitoneal or retroperitoneal or pelvic mass lesion or adenopathy. There is distention of the stomach There is dilated proximal to mid small bowel with air-fluid levels. There is fecalised content within 9 cm of the mid to distal small bowel, with decompression of the more distal small bowel. Findings a re consistent with chronic partial small bowel obstruction. The included skeletal structures are unremarkable. IMPRESSION: Chronic mid to distal small bowel obstruction Mild ascites Reviewed, dictated and finalized at [facility]. Reviewed, dictated and finalized at location A.
[2020-10-24] MEDS: SODIUM CHLORIDE 0.9% IV 1,000 ML 150 ML IV CONT (13:14)
[2020-10-24] MEDS: MORPHINE SULFATE (*CRX) 4 MG/ML INJ IV PUSH (13:14)
[2020-10-24] MEDS: ONDANSETRON INJ 4 MG/2 ML VIAL IV PUSH ×3 (13:14→20:26)
[2020-10-24 13:46] LABS: Basophils Percent Auto 0.2 % (0.2-1.2); Eosinophils Percent Auto 0.1 % (0-4.4); Hematocrit 41.9 % (37.0-47.0); Hemoglobin 14.5 g/dL (12.0-15.0); Immature Granulocyte Absolute 0.05 K/mm3 (0.00-0.031); Immature Granulocyte Percent A 0.4 % (0-0.5); Lymphocytes Absolute Auto 0.89 K/mm3 (0.9-3.2); Lymphocytes Percent Auto 7.5 % (18.3-44.2); Mean Corpuscular HGB Conc 34.6 g/dl (32-36); Mean Corpuscular Hemoglobin 31.5 pg (26-34); Mean Corpuscular Volume 91.1 fl (80-100); Mean Platelet Volume 8.9 fl (7.4-10.4); Monocytes Absolute Auto 0.4 K/mm3 (0.1-0.6); Monocytes Percent Auto 3.5 % (2.6-8.5); Neutrophils Absolute Auto 10.4 K/mm3 (1.3-6.7); Neutrophils Percent Auto 88.3 % (45.5-73.1); Platelet Count Result 285 k/mm3 (150-375); Red Cell Distribution Width 13.3 % (11.5-14.5); White Blood Count 11.8 K/mm3 (4.5-10.0)
[2020-10-24 13:56] LABS: Alanine Aminotransferase 22 U/L (4-35); Albumin Level 4.8 g/dL (3.5-5.1); Alkaline Phosphatase 73 U/L (38-126); Anion Gap 8 mmol/L (8-16); Aspartate Amino Transferase 31 U/L (14-36); Bilirubin,Total 0.8 mg/dL (0.2-1.3); Blood Urea Nitrogen 14 mg/dL (7-17); Calcium 9.9 mg/dL (8.4-10.2); Carbon Dioxide 27 mmol/L (22-30); Chloride 99 mmol/L (98-107); Estimated CRCL calculation 70 ml/min; Estimated Glomerular Filt Rate > 60; Glucose 134 mg/dL (65-105); Lipase 31 U/L (23-300); Potassium 3.9 mmol/L (3.4-5.0); Sodium 134 mmol/L (137-145)
[2020-10-24 13:57] LABS: Lactic Acid Reflex 1.5 mmol/L (0.7-2.1)
[2020-10-24 14:02] LABS: Add Urine Microscopic? YES; Appearance Urine Cloudy (Clear); Bilirubin Urine Negative (Negative); Blood Urine Negative (Negative); Color Urine Yellow (Yellow); Glucose Urine UA Negative (Negative); Ketones Urine 1+ mg/dL (Negative); Leukocyte Esterase Ur Trace LEU/UL (Negative); Mucus Urine Few /lpf; Nitrate Urine Negative (Negative); Protein Urine 1+ mg/dL (Negative); RBC Urine 0-2 /hpf (0-2); Specific Grav Ur 1.021 (1.001-1.035); Squamous Epithelial Cell Urine Few /hpf (Few); Urobilinogen Urine Negative mg/dL (<2.0); WBC Urine 0-3 /hpf
--- NOTE | 2020-10-24 15:40 | ED.ABDPAIN ---
HPI - Abdominal Pain General Chief Complaint: Abdominal Pain Stated Complaint: nausea, constipation, dizzy Time Seen by Provider: 10/24/20 12:46 Source: patient and family Mode of arrival: ambulatory Limitations: no limitations History of Present Illness HPI narrative: 59-year-old with no major medical problems here with complaints of abdominal pain and nausea. Patient states that she feels constipated. She has history of constipation. Patient also mentions that she had remote history of umbilical hernia repair and ventral hernia repair several years ago by Dr. Bora Giles. She denies any vomiting . No history of fever or chills. Denies any urinary symptoms. MD elicited complaint: abdominal pain Pertinent past history: constipation Onset (ago): day(s) (2) Pain Consistency: constant Location: diffuse Severity: moderate Quality: aching Radiation: none Migration to: no migration Exacerbating factors: nothing Relieving factors: nothing Related Data Home Medications Medication Instructions Recorded Confirmed calcium carbonate 600 mg calcium 600 mg PO DAILY 07/03/19 09/16/20 (1,500 mg) tablet multivitamin 1 tablet PO DAILY 07/03/19 09/16/20 Allergies Allergy/AdvReac Type Severity Reaction Status Date / Time No Known Allergies Allergy Unknown Verified 10/24/20 13:08 Review of Systems Review of Systems: All systems reviewed & are unremarkable except as noted in HPI and below Constitutional: Constitutional: Reports no additional constitutional complaints Eyes: Eyes: Reports no additional eye complaints ENT: Reports system reviewed and no additional complaints, except as documented Cardiovascular: Cardiovascular: Reports no additional cardiovascular complaints Respiratory: Respiratory: Reports no additional respiratory complaints Gastrointestinal: Gastrointestinal: Reports as per HPI Genitourinary: Genitourinary: Reports no additional female genitourinary complaints Musculoskeletal: Musculoskeletal: Reports no additional musculoskeletal complaints Neurologic: Reports system reviewed and no additional complaints, except as documented [facility] Past Medical History Medical History (Updated 10/24/20 @ 15:50 by Nabeel Lopez MD) Body mass index (bmi) 27.0-27.9, adult (07/12/18) Carpal tunnel syndrome Degenerative joint disease of knee Depression Primary osteoarthritis of right knee Right knee pain Vitiligo Surgical History Surgical History History of carpal tunnel release Family History Family History Mother Hypertension Family history of diabetes mellitus in first degree relative Father Hypertension Family history of sleep apnea Family history of chronic obstructive pulmonary disease Sibling Patient's brother is Hypertension Family history of chronic obstructive pulmonary disease Other Diabetes mellitus Social History Social History Smoking end date: 06/26/07 Alcohol intake: current Drinks per week: 20 Substance use type: marijuana Gender identity (if verbalized by the patient): Female Spiritual care concerns: No Agree to blood products: Yes Exam Narrative: Exam Narrative: GENERAL: Well-appearing, well-nourished, and in no acute distress. HEAD: Normocephalic, atraumatic. EYES: PERRLA and EOMI.. NECK: Supple. CHEST: Clear to auscultation. No respiratory distress. HEART: Regular rate and rhythm. No murmur heard. Normal peripheral pulses. ABDOMEN: Soft, diffuse tenderness EXTREMITIES: Normal range of motion. No edema. SKIN: Warm, dry, no rash. NEURO: No focal deficits. Alert and oriented x3. PSYCH: Normal mood and affect. Course Course Emergency Course: Inform patient about her lab work and CT findings. Patient still continues to have pain and nausea. I discussed this case with Dr. Ko pearl
[2020-10-24] MEDS: HYDROmorphone HCL INJ (*CRX) 1 MG/ML SYR IV PUSH (15:47)
--- NOTE | 2020-10-24 16:57 | PC.NURSE ---
This patient, Maryse Oliver, was admitted to Medical Room 347-. Patient/family oriented to hospital policies and general routines including ID bracelet, bed and alarms, visiting hours, pain management, procedures, bathroom and other care routines, personal items, smoking policy, room service/diet, and visiting hours. Information on how to activate the Rapid Response Team has been discussed. Patient/Family are encouraged to report perceived risks to care and to ask questions if they do not understand what they are told or what they should do.
[2020-10-24] MEDS: SODIUM CHLORIDE 0.9% IV 1,000 ML 125 ML IV CONT (18:40)
[2020-10-24] MEDS: HYDROmorphone HCL INJ (*CRX) 1 MG/ML SYR 0.5 MG IV PUSH (20:26)
[2020-10-25] MEDS: ONDANSETRON INJ 4 MG/2 ML VIAL IV PUSH ×3 (00:19→08:46)
[2020-10-25] MEDS: HYDROmorphone HCL INJ (*CRX) 1 MG/ML SYR 0.5 MG IV PUSH ×3 (00:19→08:44)
[2020-10-25] MEDS: SODIUM CHLORIDE 0.9% IV 1,000 ML 125 ML IV CONT ×3 (02:57→23:55)
[2020-10-25 05:29] VITALS: BP 162/77; PULSE 99; RESP 12; TEMP 36.7; O2SAT 97
[2020-10-25 05:47] LABS: Basophils Absolute Auto 0.1 K/mm3 (0.0-0.1); Basophils Percent Auto 0.4 % (0.2-1.2); Eosinophils Absolute Auto 0.2 K/mm3 (0-0.3); Eosinophils Percent Auto 1.2 % (0-4.4); Hematocrit 40.7 % (37.0-47.0); Hemoglobin 13.8 g/dL (12.0-15.0); Immature Granulocyte Absolute 0.11 K/mm3 (0.00-0.031); Immature Granulocyte Percent A 0.7 % (0-0.5); Lymphocytes Absolute Auto 1.88 K/mm3 (0.9-3.2); Lymphocytes Percent Auto 12.4 % (18.3-44.2); Mean Corpuscular HGB Conc 33.9 g/dl (32-36); Mean Corpuscular Hemoglobin 30.8 pg (26-34); Mean Corpuscular Volume 90.8 fl (80-100); Monocytes Absolute Auto 0.8 K/mm3 (0.1-0.6); Monocytes Percent Auto 5.4 % (2.6-8.5); Neutrophils Absolute Auto 12.2 K/mm3 (1.3-6.7); Neutrophils Percent Auto 79.9 % (45.5-73.1); Platelet Count Result 330 k/mm3 (150-375); Red Blood Count 4.48 M/mm3 (4.2-5.4); Red Cell Distribution Width 13.3 % (11.5-14.5); White Blood Count 15.2 K/mm3 (4.5-10.0)
[2020-10-25 06:03] LABS: Anion Gap 7 mmol/L (8-16); Blood Urea Nitrogen 15 mg/dL (7-17); Calcium 9.5 mg/dL (8.4-10.2); Carbon Dioxide 28 mmol/L (22-30); Chloride 103 mmol/L (98-107); Estimated CRCL calculation 68 ml/min; Estimated Glomerular Filt Rate > 60; Glucose 126 mg/dL (65-105); Sodium 138 mmol/L (137-145)
[2020-10-25 08:00] VITALS: BP 159/85; PULSE 85; RESP 18; TEMP 36.3; O2SAT 97
[2020-10-25 08:33] VITALS: O2SAT 94
--- NOTE | 2020-10-25 08:58 | PM.IMHP ---
H&P: HPI History of Present Illness Date/Time: 10/25/20 08:58 Pt is a 59 y/o F presenting to ED c/o severe, crampy abdominal pain since 10/23. Pt reports pain has been progressively worsening and comes in waves. Pt reports nausea but no emesis. Pt reports some flatus but no bowel movts since episode began. Pt reports poor appetite. Pt reports previous episodes in the past that resolved c conservative tx, laxatives. Pt had previous robotic assisted VHR in 2016. Chief Complaint: small bowel obstruction Review of Systems Constitutional: Constitutional: Reports anorexia, Denies chills, Reports fatigue, Denies fever(s), Denies headache(s), Reports lethargy, Reports poor appetite, Reports weakness, Denies weight gain and Denies weight loss Eyes: Eyes: Reports no additional eye complaints ENT: Reports system reviewed and no additional complaints, except as documented Cardiovascular: Cardiovascular: Reports no additional cardiovascular complaints Respiratory: Respiratory: Reports no additional respiratory complaints Gastrointestinal: Gastrointestinal: Reports abdominal pain, Reports belching, Reports bloating, Reports change in bowel habits, Reports constipation, Reports early satiety, Reports heartburn, Denies diarrhea, Denies loose stools, Reports nausea and Denies vomiting Genitourinary: Genitourinary: Reports no additional female genitourinary complaints Musculoskeletal: Musculoskeletal: Reports no additional musculoskeletal complaints Integumentary/Breasts: Skin/Breast: Reports system reviewed and no additional complaints, except as docu Neurologic: Reports system reviewed and no additional complaints, except as documented Psychiatric: Psychiatric: Reports no additional psychiatric complaints Endocrine: Endocrine: Reports no additional endocrine complaints Hematologic/Lymphatic: Hematologic/Lymphatic: Reports no additional hematologic/lymphatic complaints Allergic/Immunologic: Allergic/Immunologic: Reports no additional allergic/immunologic complaints [facility] Past Medical History Medical History Body mass index (bmi) 27.0-27.9, adult (07/12/18) Carpal tunnel syndrome Degenerative joint disease of knee Depression Primary osteoarthritis of right knee Right knee pain Vitiligo Surgical History Surgical History History of carpal tunnel release Family History Family History Mother Hypertension Family history of diabetes mellitus in first degree relative Father Hypertension Family history of sleep apnea Family history of chronic obstructive pulmonary disease Sibling Patient's brother is Hypertension Family history of chronic obstructive pulmonary disease Other Diabetes mellitus Social History Social History Smoking status: Former smoker Smoking end date: 06/26/07 Alcohol intake: current Drinks per week: 4 Substance use: never Substance use type: marijuana Gender identity (if verbalized by the patient): Female Spiritual care concerns: No Agree to blood products: Yes Comments PSxH - previous R and R Meds Home Medications and Allergies Home Medications Medication Instructions Recorded Confirmed Type multivitamin 1 tablet PO DAILY 07/03/19 10/24/20 History duloxetine 40 mg capsule,delayed 40 mg PO DAILY #90 cap 09/16/20 10/24/20 Rx release ergocalciferol (vitamin D2) 50 mcg PO DAILY 10/24/20 10/24/20 History Allergies Allergy/AdvReac Type Severity Reaction Status Date / Time No Known Allergies Allergy Unknown Verified 10/24/20 13:08 Vital Signs Vital Signs - 24 hr 10/24/20 12:41 10/24/20 13:53 10/24/20 14:56 Temperature 36.6 C Pulse Rate 78 79 85 Respiratory Rate 18 16 16 Blood Pressure 147/74 H 126/73 Pulse Oximetry 100 96 99
--- NOTE | 2020-10-25 12:27 | PC.NURSE ---
Per Xray, pt can be placed to suction.
[2020-10-25 14:00] VITALS: BP 137/70; PULSE 91; RESP 16; TEMP 37.1; O2SAT 96
[2020-10-25 20:25] VITALS: BP 140/64; PULSE 93; RESP 12; TEMP 37; O2SAT 97
[2020-10-26] VITALS: BP 138/66; PULSE 77; RESP 14; TEMP 36.8; O2SAT 97
[2020-10-26 05:30] VITALS: BP 167/70; PULSE 88; RESP 14; TEMP 36.6; O2SAT 95
[2020-10-26 06:00] LABS: Hematocrit 36.4 % (37.0-47.0); Mean Corpuscular Hemoglobin 31.7 pg (26-34); Mean Corpuscular Volume 96.3 fl (80-100); Mean Platelet Volume 8.9 fl (7.4-10.4); Platelet Count Result 217 k/mm3 (150-375); Red Blood Count 3.78 M/mm3 (4.2-5.4); Red Cell Distribution Width 13.6 % (11.5-14.5); White Blood Count 9.4 K/mm3 (4.5-10.0)
[2020-10-26] MEDS: HYDROmorphone HCL INJ (*CRX) 1 MG/ML SYR 0.5 MG IV PUSH (06:24)
[2020-10-26] MEDS: SODIUM CHLORIDE 0.9% IV 1,000 ML 125 ML IV CONT (08:07)
[2020-10-26 08:24] LABS: Anion Gap 4 mmol/L (8-16); Blood Urea Nitrogen 15 mg/dL (7-17); Calcium 8.4 mg/dL (8.4-10.2); Carbon Dioxide 28 mmol/L (22-30); Chloride 108 mmol/L (98-107); Estimated CRCL calculation 78 ml/min; Estimated Glomerular Filt Rate > 60; Glucose 94 mg/dL (65-105); Potassium 3.1 mmol/L (3.4-5.0); Sodium 140 mmol/L (137-145)
--- NOTE | 2020-10-26 10:55 | PM.PNGS ---
Progress Note: A&P Assessment and Plan (1) SBO (small bowel obstruction): Code(s): K56.609 - Unspecified intestinal obstruction, unspecified as to partial versus complete obstruction Status: Acute Assessment and Plan: Resolving. Bowels are moving. Gastrografin SBFT showed transit time to colon within 2.5 hours. Abd exam benign. Will remove NG tube and start clear liquids. (2) Body mass index (bmi) 27.0-27.9, adult: Onset Date: 07/12/18 Code(s): Z68.27 - Body mass index [BMI] 27.0-27.9, adult Status: Acute Additional Plan I have discussed plan of care with Dr. Connell. Subjective Subjective Date/Time Seen: 10/26/20 10:55 Patient reports: no new complaints, feels better, pain is less, flatus and bowel movement Interval history: Patient feeling much better today. No abdominal pain and improvement and bloating. Reports multiple bowel movements, she cannot estimate how many since the Gastrografin study. No other complaints. Review of Systems Constitutional: Constitutional: Reports no additional constitutional complaints, Reports headache(s) and Reports other ( Discomfort from NG) Exam Const: General: no acute distress, alert and awake Orientation/consciousness: patient oriented x3 Resp: Effort & Inspection: normal respiratory effort Auscultation: clear to auscultation bilaterally Cardio: Rate: regular rate Rhythm: regular rhythm GI: Inspection: other ( mildly distended) GI Palp: Yes Soft to palpation, Yes Tenderness to palpation present (GI) ( diffusely tender, improved), No Guarding due to palpation present (GI), No Rigid due to palpation and No Rebound tenderness present Auscultation: normal bowel sounds Other: no peritoneal signs Skin: General skin exam: normal color Neuro: General: moves all extremities and no focal motor deficits Cognition (Neuro): normal cognition Speech: normal speech Extrem: General: normal to inspection and no clubbing, cyanosis or edema Psych: Insight: Good insight present (Psych) Judgement: Good judgement present (Psych) Objective Data Vital Signs Vital Signs: Vital Signs - 24 hr 10/25/20 14:00 10/25/20 20:25 10/26/20 00:00 Temperature 98.7 F 98.6 F 98.2 F Pulse Rate 91 93 77 Respiratory Rate 16 12 14 Blood Pressure 137/70 140/64 138/66 Pulse Oximetry 96 97 97 10/26/20 05:30 Temperature 97.9 F Pulse Rate 88 Respiratory Rate 14 Blood Pressure 167/70 H Pulse Oximetry 95 Intake/Output Intake/Output: Intake & Output 10/23/20 10/24/20 10/25/20 10/26/20 23:59 23:59 23:59 23:59 Intake Total 1000 3300 1000 Output Total 2000 1150 Balance 1000 1300 -150 Meds/Results Medications: Active Medications Generic Name Dose Route Start Last Admin Trade Name Freq PRN Reason Stop Dose Admin Hydromorphone HCl 0.5 mg 10/24/20 15:37 10/26/20 06:24 Hydromorphone Hcl Inj (*Crx) 1 Mg/Ml Syr IV PUSH 0.5 mg Q4H PRN Administration Pain Rated 7-10 Sodium Chloride 1,000 mls @ 75 mls/hr 10/24/20 15:40 10/26/20 08:07 Normal Saline Iv IV CONT 125 mls/hr .[id number] [id number] Administration Ondansetron HCl 4 mg 10/24/20 15:37 10/25/20 08:46 Ondansetron Inj 4 Mg/2 Ml Vial IV PUSH 4 mg Q4H PRN Administration Nausea Radiology Results: ITS Impressions Abdomen/Pelvis CT 10/24/20 14:34 IMPRESSION: Chronic mid to distal small bowel obstruction Mild ascites Abdomen X-Ray 10/25/20 09:53 IMPRESSION: NG tube in gastric fundus Small Bowel X-Ray 10/25/20 13:55 IMPRESSION: Partial mid to distal small bowel obstruction. Labs Labs: Laboratory Results - last 24 hr 10/26/20 10/26/20 05:45 08:03 WBC 9.4 RBC 3.78 L Hgb 12.0 Hct 36.4 L MCV 96.3 D MCH 31.7 MCHC 33.0 RDW 13.6 Plt Count 217 MPV 8.9 Sodium 140 Potassium 3.1 L Chloride 108 H Carbon Dioxide 28 Anion Gap 4 L BUN 15 Creatinine 0.60 L Estim Creat Clear Calc 78 E
[2020-10-26 14:00] VITALS: BP 133/69; PULSE 99; RESP 18; TEMP 36.9; O2SAT 97
--- NOTE | 2020-10-26 16:07 | PM.DS ---
DS: Admitting Diagnosis Admitting Diagnosis Admitting Diagnosis: Small bowel obstruction BMI 26 DS: Discharge Diagnosis Discharge Diagnosis (1) SBO (small bowel obstruction): Code(s): K56.609 - Unspecified intestinal obstruction, unspecified as to partial versus complete obstruction Status: Acute (2) Overweight (BMI 25.0-29.9): Code(s): E66.3 - Overweight Status: Acute DS: Summary Hospital Course Reason for hospitalization: Pt is a 59 y/o F who presented to ED c/o severe, crampy abdominal pain since 10/23. Reported nausea but no emesis. She has had similar episodes in the past that resolved with conservative measures. She had previous robotic assisted VHR in 2016. ED workup showed evidence of small bowel obstruction on the CT scan. Patient was admitted in this setting. Hospital Course: She was treated with conservative measures initially, including NG tube decompression, bowel rest, IV fluids, and analgesics as needed. Gastrografin small bowel follow through was ordered and showed dilated proximal and mid small bowel with transit of contrast to the colon within 2.5 hours. Bowel function returned and she was feeling much better this morning. NG tube was removed and she was advanced from a clear liquid to a regular diet today. She has tolerated this well. Bowels continue to move and she is no longer having any abdominal pain, nausea, or vomiting. Bloating continues to improve. Patient discharged this evening after she was able to tolerate a regular diet. Discharge instructions discussed with the patient and questions answered. Status at Discharge Functional status at discharge: independent ambulation Overall status at discharge: patient is progressing back to baseline Time Spent with Patient Time attestation: Total time spent providing and/or coordinating discharge services: Time spent: Less than 30 minutes DS: Data Data Completed and Pending Labs on day of discharge: Labs from last 24 hours 10/26/20 10/26/20 08:03 05:45 WBC 9.4 RBC 3.78 L Hgb 12.0 Hct 36.4 L MCV 96.3 D MCH 31.7 MCHC 33.0 RDW 13.6 Plt Count 217 MPV 8.9 Sodium 140 Potassium 3.1 L Chloride 108 H Carbon Dioxide 28 Anion Gap 4 L BUN 15 Creatinine 0.60 L Estim Creat Clear Calc 78 Estimated GFR > 60 Glucose 94 Calcium 8.4 Imaging Radiologist's impression: ITS Impressions Abdomen/Pelvis CT 10/24/20 14:34 IMPRESSION: Chronic mid to distal small bowel obstruction Mild ascites Abdomen X-Ray 10/25/20 08:17 IMPRESSION: Gas distended proximal and mid small bowel, consistent with partial small bowel obstruction noted on 10/24/2020 CT abdomen pelvis examination Abdomen X-Ray 10/25/20 09:53 IMPRESSION: NG tube in gastric fundus Small Bowel X-Ray 10/25/20 13:55 IMPRESSION: Partial mid to distal small bowel obstruction. Discharge Plan Discharge Attending physician on discharge: Pao Connell Discharging Clinician: Wendy Stubbs Anticipated Discharge Date/Time: 10/26/20 18:00 Patient Disposition: Home, Self-Care Activity: as tolerated Diet: regular Discharge Instructions: May continue a regular diet as tolerated. Avoid large quantities of high fiber foods. If you develop nausea or vomiting, back your diet off to clear liquids and see how you tolerate this. If symptoms persist and/or you develop abdominal pain, then call our office or present back to the ER. Follow-up with your PCP as scheduled. Take a daily laxative for the next 1-2 weeks (such as Miralax), and then you may start taking this only as needed to keep bowels moving daily. Patient Instructions: Antibiotic Form, Constipation (DC), Bowel Obstruction (DC) Stand Alone Forms: General Discharge Information Follow-up/Referrals: Roberto Horne MD [Primary Care Provider] - Discharge Medications: Continued duloxetine 40 mg capsule,delayed release(DR/E
== END 2020-10-26 18:06 | disposition home or self-care (01) | DRG 390 ==
LOC: ANHED 15:50 → ANH3MED 18:03
PROVIDERS: Admitting Provider Surgery; Emergency Provider Family Medicine; PCP Internal Medicine; Visit Provider Nurse Practitioner Family
DX: K56.609 Unspecified intestinal obstruction, unspecified as to partial versus complete obstruction (principal); E66.3 Overweight; Z68.26 Body mass index [BMI] 26.0-26.9, adult; Z87.891 Personal history of nicotine dependence
CPT/HCPCS: 36415; 74019; 74177; 74250; 80048; 80053; 81001; 83605; 83690; 85025; 85027; 96361; 96374; 96375; 99285; J1170; J2270; J2405; J7030; Q9967

== ENCOUNTER → 2020-11-11 13:34 | Outpatient (CLI) | payer BC, SELFPAY ==
--- NOTE | ~2020-11-11 | MM_ITS ---
EXAMINATION: MM screening tami BI w alexandre HISTORY: Screening TECHNIQUE: Craniocaudal and mediolateral oblique 3-D tomosynthesis images were obtained and synthetic 2-D images were generated. CAD analysis was submitted and interpreted. COMPARISON: Comparison to multiple prior studies sequentially, with oldest reviewed study dated 09/10. BREAST PARENCHYMAL COMPOSITION: There are scattered areas of fibroglandular density. FINDINGS: There is no evidence of suspicious mass, calcification, or architectural distortion to sugg est malignancy in either breast. There has been no suspicious interval change. IMPRESSION: 1. No mammographic evidence of malignancy. 2. Recommend routine screening mammography in one year. BI-RADS Category 1: Negative Reviewed, dictated and finalized at location A.
--- NOTE | ~2020-11-11 | DEXA_ITS ---
Bone Density Report Name: Maryse Oliver Age: 59 Sex: Female Ethnicity: White Date of : 1960 Indication: postmenopausal; screening for osteoporosis; hysterectomy; Referring Provider: GM JEREZ Study: Bone densitometry was performed. Exam Date: November 11, 2020 Accession number: [id number] Bone Density: Region BMD T-score Z-score Classification AP Spine (L1-L4) 1.092 0.4 1.7 Normal Femoral Neck (Left) 0.888 0.3 1.5 Normal Total Hip (Left) 1.124 1.5 2.3 Normal Femoral Neck (Right) 0.850 0.0 1.2 Normal Total Hip (Right) 1.081 1.1 2.0 Normal Total Hip Mean 1.103 1.3 2.2 Normal World Health Organization criteria for BMD impression classify patients as: Normal (T-score at or above -1.0), Osteopenia (T-score between -1.0 and -2.5), or Osteoporosis (T-score at or below -2.5). 10-year Fracture Risk: FRAX not reported because: All T-scores for Spine Total, Hip Total, Femoral Neck at or above -1.0 Clinical Information Provided by Patient: Has used the following medications: Vitamin D, Calcium Has the following medical conditions: Hysterectomy Patient maximum height was 62.3 Menopause Age: 53 Drinks caffeinated beverages Onset of menses at age 16 Number of children 3 Impression: The patient has normal bone mass. Discussion: BONE DENSITY IS ABOVE THE MINIMUM DESIRABLE LEVEL AT ALL SKELETAL SITES TESTED. This patient?s bone mineral density is above the minimum desirable level (T-score -1.0 or better) at all sites measured. The patient should follow a healthful lifestyle (good nutrition with adequate calcium and vitamin D, and appropriate weight-bearing exercise). Follow-Up: Consider repeating this study in 5 years or sooner if there is some new clinical indication. Reported by: IVANNA on 11/11/2020 1:57:00 PM. Reviewed, dictated and finalized at location [facility] MOON
== END ==
PROVIDERS: PCP Internal Medicine; Visit Provider Internal Medicine
DX: Z12.31 Encounter for screening mammogram for malignant neoplasm of breast (principal); Z78.0 Asymptomatic menopausal state
CPT/HCPCS: 77063; 77067; 77080

== ENCOUNTER → 2021-10-01 01:25 | Outpatient (CLI) | payer BC, SELFPAY ==
[2021-10-01 13:31] LABS: Influenza A QL RT-PCR Negative (Negative); Influenza B QL RT-PCR Negative (Negative); SARS-CoV-2 RNA PCR Negative
== END ==
PROVIDERS: PCP Internal Medicine; Visit Provider Internal Medicine
DX: R68.89 Other general symptoms and signs (principal); Z20.822 Contact with and (suspected) exposure to COVID-19
CPT/HCPCS: 87502; C9803; U0003; U0005

== ENCOUNTER → 2022-08-17 11:20 | Outpatient (CLI) | payer BC, SELFPAY ==
--- NOTE | ~2022-08-17 | MM_ITS ---
EXAMINATION: MM screening tami BI w alexandre HISTORY: Screening mammogram TECHNIQUE: Craniocaudal and mediolateral oblique 3-D tomosynthesis images were obtained and synthetic 2-D images were generated. CAD analysis was submitted and interpreted. COMPARISON: 11/11/2020, , 09/10/2014 bilateral screening mammogram examinations BREAST PARENCHYMAL COMPOSITION: The breasts are heterogeneously dense, which may obscure small masses . FINDINGS: There is no evidence of suspicious mass, calcification, or architectural distortion to sugg est malignancy in either breast. There has been no suspicious interval change. IMPRESSION: 1. No mammographic evidence of malignancy. 2. Recommend routine screening mammography in one year. BI-RADS Category 1: Negative Reviewed, dictated and finalized at location A. 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
== END ==
PROVIDERS: PCP Internal Medicine; Visit Provider Nurse Practitioner
DX: Z12.31 Encounter for screening mammogram for malignant neoplasm of breast (principal)
CPT/HCPCS: 77063; 77067

== ENCOUNTER 2023-04-13 15:58 | Emergency (ER) | payer BC, SELFPAY ==
[2023-04-13 16:10] VITALS: BP 151/80; PULSE 88; RESP 16; TEMP 36.6; O2SAT 100
--- NOTE | 2023-04-13 16:39 | ED.URI ---
HPI - URI/Sore Throat General Chief Complaint: Upper Respiratory Infection Stated Complaint: Headache;Chest pain;Earache Time Seen by Provider: 04/13/23 16:16 Source: patient and RN notes reviewed Mode of arrival: ambulatory Limitations: no limitations History of Present Illness HPI Narrative: Patient presents today complaining of a 3 day history of nasal congestion, sinus pressure, sore throat, and headache. Currently rates her pain 8/10 and has been taking vitamin-C without relief. 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 Related Data Home Medications Medication Instructions Recorded Confirmed multivitamin 1 tablet PO DAILY 07/03/19 04/13/23 ergocalciferol (vitamin D2) 50 mcg 50 mcg PO DAILY 10/24/20 04/13/23 (2,000 unit) tablet Allergies Allergy/AdvReac Type Severity Reaction Status Date / Time No Known Allergies Allergy Unknown Verified 04/13/23 16:05 Review of Systems Review of Systems: CONSTITUTIONAL: Denies body aches, fever, chills, or sweats. EYES: Denies visual changes, redness, or discharge. ENT: Denies rhinorrhea, or otalgia.+ nasal congestion, sinus pressure, sore throat CARDIOVASCULAR: Denies chest pain, palpitations, or edema. RESPIRATORY: Denies cough or dyspnea. GASTROINTESTINAL: Denies abdominal pain, nausea, vomiting, or diarrhea. GENITOURINARY: Denies dysuria or hematuria. SKIN: Denies rash, itching, or wounds. MUSCULOSKELETAL: Denies back pain, joint pain, or myalgia. NEUROLOGIC: Denies numbness, tingling, or weakness.+ headache PSYCH: Denies depression or anxiety. [facility] Past Medical History Medical History (Updated 04/13/23 @ 16:42 by Yulisa Martinez, BRUCE, BC) Body mass index (bmi) 27.0-27.9, adult (07/12/18) Carpal tunnel syndrome Degenerative joint disease of knee Depression Primary osteoarthritis of right knee Right knee pain Vitiligo Surgical History Surgical History History of carpal tunnel release Family History Family History Mother Hypertension Family history of diabetes mellitus in first degree relative Father Hypertension Family history of sleep apnea Family history of chronic obstructive pulmonary disease Sibling Patient's brother is Hypertension Family history of chronic obstructive pulmonary disease Other Diabetes mellitus Social History Social History Smoking packs per day: 1 Smoking cigarettes per day: 20.0 Smoking status: Former smoker Tobacco type: cigarettes Smoking end date: 06/26/07 Alcohol intake: current Drinks per week: 4 Substance use: never Substance use type: does not use Lack of Transportation: No Lack of Food: Never True Current Housing: I Have Housing Concerned About Future Housing: No Difficulty Paying Gas/Electric Bills: No Difficulty Paying for Meds: No Currently Unemployed: No Education: Associate Degree Difficulty w/ Childcare or Family Care: No Living arrangements: with family Occupation/Education: occupation Gender identity (if verbalized by the patient): Female Sexual Orientation (if Verbalized by the Patient): Straight or Heterosexual Spiritual care concerns: No Agree to blood products: Yes Comments At time of signature, I have reviewed and agree with nursing past medical, surgical, social and family history unless otherwise noted. Please see nursing chart for further information. There is no relevant family history pertinent to the presenting complaint Exam Narrative: GENERAL: Well-appearing, well-nourished, and in no acute distress. HEAD: Normocephalic, atraumatic. EYES: EOMI. No redness or drainage. Conjunctivae normal. ENT: Mucous membranes pink and moist. Nares congested. No rhinorrhea. TMs normal bilaterally. Throat normal. Uvula midline. NECK:
== END 2023-04-13 16:50 | disposition home or self-care (01) ==
PROVIDERS: Emergency Provider Nurse Practitioner; PCP Nurse Practitioner
DX: J06.9 Acute upper respiratory infection, unspecified (principal); Z87.891 Personal history of nicotine dependence; M17.11 Unilateral primary osteoarthritis, right knee
CPT/HCPCS: 99213; G0463

== ENCOUNTER 2024-07-31 12:06 | Outpatient (CLI) | payer BC, SELFPAY ==
--- NOTE | ~2024-07-31 | MM_ITS ---
EXAMINATION: MM screening tami BI w alexandre HISTORY: Screening TECHNIQUE: Craniocaudal and mediolateral oblique 3-D tomosynthesis images were obtained and synthetic 2-D images were generated. CAD analysis was submitted and interpreted. COMPARISON: Comparison to multiple prior studies sequentially, with oldest reviewed study dated 08/13. BREAST PARENCHYMAL COMPOSITION: Dense: The breasts are heterogeneously dense, which may obscure small masses FINDINGS: There is a low-density mass in the inner aspect of the left breast at approximately 9:00 po sition. No mammographic evidence for malignancy in the right breast. IMPRESSION: 1. New left breast mass at approximately 9:00, middle third. 2. Additional mammographic views and possible breast ultrasound are recommended. BI-RADS Category 0: Incomplete: Needs additional imaging evaluation. Reviewed, dictated and finalized at location B. US DANCER IMPRESSION: 1. New left breast mass at approximately 9:00, middle third. 2. Additional mammographic views and possible breast ultrasound are recommended . BI-RADS Category 0: Incomplete: Needs additional imaging evaluation.
== END 2024-07-31 12:07 | disposition home or self-care (01) ==
LOC: MICIMG 12:07
PROVIDERS: PCP Nurse Practitioner; Visit Provider Nurse Practitioner
DX: Z12.31 Encounter for screening mammogram for malignant neoplasm of breast (principal); R92.8 Other abnormal and inconclusive findings on diagnostic imaging of breast
CPT/HCPCS: 77063; 77067

== ENCOUNTER 2024-08-09 09:08 | Outpatient (CLI) | payer BC, SELFPAY ==
--- NOTE | ~2024-08-09 | MMUS_ITS ---
EXAMINATION: MM diagnostic tami LT w alexandre, US breast LT limited HISTORY: Follow-up left breast asymmetry TECHNIQUE: Additional 3-D tomosynthesis images of the left breast were performed and synthetic 2-D im ages were generated. CAD analysis was submitted and interpreted. High resolution Limited left breast ultrasound was performed. COMPARISON: Comparison to multiple prior studies sequentially, with oldest reviewed study dated 09/10. BREAST PARENCHYMAL COMPOSITION: Not dense: There are scattered areas of fibroglandular density. FINDINGS: MAMMOGRAPHIC FINDINGS: There are no suspicious masses, calcifications or architectural distortion in the left breast to sugg est malignancy. ULTRASOUND: Limited left breast ultrasound: At 11:00, 1 cm from the nipple there is a complicated cyst measuring 8 mm, likely benign. No internal vascularity or significant posterior features. IMPRESSION: 1. Complicated left breast cysts at 11:00, 3 cm from the nipple. 2. Recommend 6 month follow-up Limited left breast ultrasound BI-RADS category 3, probably benign findings. Reviewed, dictated and finalized at location B. COORDINATOR IMPRESSION: 1. Complicated left breast cysts at 11:00, 3 cm from the nipple. 2. Recommend 6 month follow-up Limited left breast ultrasound BI-RADS category 3, probably benign findings.
== END 2024-08-09 09:09 | disposition home or self-care (01) ==
LOC: MICIMG 09:09
PROVIDERS: PCP Nurse Practitioner; Visit Provider Nurse Practitioner
DX: N63.20 Unspecified lump in the left breast, unspecified quadrant (principal); R92.8 Other abnormal and inconclusive findings on diagnostic imaging of breast
CPT/HCPCS: 76642; 77061; 77065; G0279

== ENCOUNTER 2024-08-16 05:15 | Day surgery (SDC) | payer BC, SELFPAY ==
[2024-07-31 14:32] VITALS: BMI 23.8
--- OUTSIDE RECORDS SUMMARY | 2024-08-16 05:17 | XMS_ITS | Clinical Summary ---
Author Organization [facility] Address [address] [place] [id number] Care Team Providers Care Letter Of Credit Clerk Name Role Phone Unavailable Primary Care Provider Unavailabl e Social History Tobacco Use Types Packs/Day Years Used Date Smoking Tobacco: Never Assessed Comments Unknown Sex and Gender Information Value Date Recorded Sex Assigned at Not on file Legal Sex Female 7:37 PM CDT Gender Identity Not on file Sexual Orientation Not on file Plan of Treatment Health Maintenance Due Date Last Done Comments Cervical Cancer Screening Pa p Smear (Age 30 to 64) Every 3 Years 1960 Colorectal Cancer Screening Colonoscopy (10 Years) 1962 Annual Physical 1965 Hepatitis C 1980 DTaP, Tdap and Td Vaccines ( 1 - Tdap) 1981 Cervical Cancer Screening Pa p with HPV Testing (Age 30 to 64) Every 5 Years 1992 Cervical Cancer Screening with HPV 1992 Mammogram Screening 2002 Zoster Vaccines (1 of 2) 2012 COVID-19 Vaccine (2023-2 5 season) 2024 Influenza Adult (#1) 2024 RSV Immunization or 60+ Years (1 - 1-dose 75+ series) 2037 Meningococcal B Vaccine Aged Out No l onger eligible based on patient's age to complete this topic Meningococcal Vaccine Aged Out No uriel benjie eligible based on patient's age to complete this topic Pneumococcal Vaccine: Pediat rics (0 to 5 Years) and At-Risk Patients (6 to 64 Years) Aged Out No longer eligible b ased on patient's age to complete this topic RSV Immunizations Under 20 Months Aged Out No longer eligible based on patient's age to complete this topic
--- NOTE | 2024-08-16 07:53 | WPDANESEPPF ---
Anes - Initial Pre Proc Eval Procedure: Operation Date: 08/16/24 09:00 Proposed Procedures p Screening Colonoscopy - Lucian Mercado MD Date/Time: 08/16/24 07:53 Surgeon: Lucian Mercado MD Pre Op Diagnosis: screening malignant neoplasm of colon Patient Data Age: 63 Gender: F Height: 1.57 m Weight: 59 kg Allergies Allergy/AdvReac Type Severity Reaction Status Date / Time No Known Allergies Allergy Unknown Verified 08/16/24 07:56 Home Medications ?Medication ?Instructions ?Recorded ?Confirmed ?Type multivitamin 1 tablet PO DAILY 07/03/19 07/31/24 History ergocalciferol (vitamin D2) 50 mcg 50 mcg PO DAILY 10/24/20 07/31/24 History (2,000 unit) tablet buspirone 30 mg tablet 30 mg PO TID PRN stress #45 tabs 09/29/23 07/31/24 Rx trazodone 50 mg tablet 50 mg PO QHS PRN sleep #30 tabs 03/05/24 07/31/24 Rx ferrous sulfate 325 mg (65 mg 325 mg PO DAILY 07/31/24 07/31/24 History iron) tablet (iron) Patient hx anesthesia problems: none Family hx anesthesia problems: none Results Review: All pre-operative results and documents have been reviewed as part of the pre-operative evaluation. [facility] Past Medical History Medical History (Updated 08/16/24 @ 07:53 by Fredy Beverly DO) Anxiety Endometriosis Carpal tunnel syndrome Vitiligo Depression Body mass index (bmi) 27.0-27.9, adult (07/12/18) Primary osteoarthritis of right knee Degenerative joint disease of knee Right knee pain Surgical History Surgical History History of carpal tunnel release Family History Family History Mother Hypertension Family history of diabetes mellitus in first degree relative Father Hypertension Family history of sleep apnea Family history of chronic obstructive pulmonary disease Sibling Patient's brother is Hypertension Family history of chronic obstructive pulmonary disease Other Diabetes mellitus Social History Social History Smoking packs per day: 1 Smoking cigarettes per day: 20.0 Smoking status: Former smoker Tobacco type: cigarettes Smoking end date: 06/26/07 Alcohol intake: current Drinks per week: 12 Alcohol use details: beer Substance use: never Substance use type: other Last use: THC gummy every other day Lack of Transportation: No Lack of Food: Never True Current Housing: I Have Housing Concerned About Future Housing: No Difficulty Paying Gas/Electric Bills: No Difficulty Paying for Meds: No Currently Unemployed: No Education: Associate Degree Difficulty w/ Childcare or Family Care: No Living arrangements: with family Occupation/Education: occupation Gender identity (if verbalized by the patient): Female Sexual Orientation (if Verbalized by the Patient): Straight or Heterosexual Spiritual care concerns: No Agree to blood products: Yes Anes - Eval Final PreProcedure Day of Procedure 08/16/24 07:53 Patient weight: normal Heart: regular rate and rhythm Lungs: clear to auscultation and normal air movement Airway: Mallampati scale class II Neurological: alert and oriented Last oral intake: >/= 8 hours ASA classification: III Emergent: no Anesthetic plan: proceed Anesthesia type and monitoring: general GIVS and standard monitoring Results Review: All pre-operative results and documents have been reviewed as part of the pre-operative evaluation. Informed Consent: The patient's anesthetic plan and its attendant risks and benefits were discussed with the patient/family/POA. Questions were solicited and answers provided to the satisfaction of the patient/family/POA.
[2024-08-16 07:58] VITALS: BP 147/85; PULSE 97; RESP 20; TEMP 36; O2SAT 97; BMI 24.3
[2024-08-16] MEDS: LACTATED RINGERS 1,000 ML 150 ML IV CONT (08:06)
--- NOTE | 2024-08-16 08:42 | PM.HPGS ---
History of Present Illness History of Present Illness Consent: Risks, benefits, and alternatives have been discussed and questions answered. Patient agrees to proceed with procedure. Chief complaint: screening malignant neoplasm of colon Narrative: Maryse Oliver is a 63 year old female here for screening colonoscopy, last one 12 years ago Review of Systems Review of Systems: All systems reviewed & are unremarkable except as noted in HPI and below PMFSH Past Medical History Medical History (Updated 08/16/24 @ 07:53 by Fredy Beverly DO) Anxiety Endometriosis Carpal tunnel syndrome Vitiligo Depression Body mass index (bmi) 27.0-27.9, adult (07/12/18) Primary osteoarthritis of right knee Degenerative joint disease of knee Right knee pain Surgical History Surgical History History of carpal tunnel release Family History Family History Mother Hypertension Family history of diabetes mellitus in first degree relative Father Hypertension Family history of sleep apnea Family history of chronic obstructive pulmonary disease Sibling Patient's brother is Hypertension Family history of chronic obstructive pulmonary disease Other Diabetes mellitus Social History Social History Smoking packs per day: 1 Smoking cigarettes per day: 20.0 Smoking status: Former smoker Tobacco type: cigarettes Smoking end date: 06/26/07 Alcohol intake: current Drinks per week: 12 Alcohol use details: beer Substance use: never Substance use type: other Last use: THC gummy every other day Lack of Transportation: No Lack of Food: Never True Current Housing: I Have Housing Concerned About Future Housing: No Difficulty Paying Gas/Electric Bills: No Difficulty Paying for Meds: No Currently Unemployed: No Education: Associate Degree Difficulty w/ Childcare or Family Care: No Living arrangements: with family Occupation/Education: occupation Gender identity (if verbalized by the patient): Female Sexual Orientation (if Verbalized by the Patient): Straight or Heterosexual Spiritual care concerns: No Agree to blood products: Yes Meds Home Medications and Allergies Home Medications ?Medication ?Instructions ?Recorded ?Confirmed ?Type multivitamin 1 tablet PO DAILY 07/03/19 08/16/24 History ergocalciferol (vitamin D2) 50 mcg 50 mcg PO DAILY 10/24/20 08/16/24 History (2,000 unit) tablet buspirone 30 mg tablet 30 mg PO TID PRN stress #45 tabs 09/29/23 08/16/24 Rx trazodone 50 mg tablet 50 mg PO QHS PRN sleep #30 tabs 03/05/24 08/16/24 Rx ferrous sulfate 325 mg (65 mg 325 mg PO DAILY 07/31/24 08/16/24 History iron) tablet (iron) Allergies Allergy/AdvReac Type Severity Reaction Status Date / Time No Known Allergies Allergy Unknown Verified 08/16/24 07:56 Vital Signs Vital Signs - 24 hr 08/16/24 07:58 Temperature 96.8 F L Pulse Rate 97 Respiratory Rate 20 Blood Pressure 147/85 H Pulse Oximetry 97 Oxygen Delivery Room Air Exam Const: General: comfortable and no acute distress HENMT: Face/Nose/Sinus: Normal nares present Eyes: General: appearance normal, both eyes and all related structures Neck: Neck: no JVD Resp: Auscultation: clear to auscultation bilaterally Cardio: Rate: regular rate Rhythm: regular rhythm GI: Inspection: non-distended GI Palp: Yes Soft to palpation Skin: General skin exam: normal color Neuro: General: gait normal Speech: normal speech Extrem: General: normal to inspection Psych: Mental Status: mental status grossly normal Assessment and Plan Assessment and plan (1) Screening for colon cancer: Code(s): Z12.11 - Encounter for screening for malignant neoplasm of colon Status: Acute Assessment and Plan: colonoscopy
[2024-08-16 08:59] VITALS: BP 101/62; PULSE 68; RESP 18; O2SAT 97
[2024-08-16 09:09] VITALS: BP 107/76; PULSE 72; RESP 18; O2SAT 97
[2024-08-16 09:19] VITALS: BP 139/82; PULSE 66; RESP 18; O2SAT 100
== END 2024-08-16 09:33 | disposition home or self-care (01) ==
PROVIDERS: PCP Nurse Practitioner; Visit Provider Internal Medicine Gastroenterology
PROC: 0DJD8ZZ Inspection of Lower Intestinal Tract, Via Natural or Artificial Opening Endoscopic (ICD-10-PCS; CPT 45378; principal; 2024-08-16 09:00)
DX: Z12.11 Encounter for screening for malignant neoplasm of colon (principal); K64.8 Other hemorrhoids; K57.30 Diverticulosis of large intestine without perforation or abscess without bleeding; F41.9 Anxiety disorder, unspecified; F32.A Depression, unspecified; M17.11 Unilateral primary osteoarthritis, right knee; N80.9 Endometriosis, unspecified; G56.00 Carpal tunnel syndrome, unspecified upper limb; Z98.890 Other specified postprocedural states; Z87.891 Personal history of nicotine dependence
CPT/HCPCS: 45378; J2003; J2704; J7120

== ENCOUNTER 2025-02-14 08:24 | Outpatient (CLI) | payer BC, SELFPAY ==
--- NOTE | ~2025-02-14 | US_ITS ---
EXAMINATION TYPE: US breast LT limited COMPARISON: 08/09/2024 REASON FOR STUDY: N60.09 - Solitary cyst of unspecified breast TECHNIQUE: Targeted sonographic evaluation of the left breast was performed. INTERPRETATION: At the 11:00 position left breast, 1 cm from the nipple, there is a 9 x 5 x 7 mm cyst, mildly irregular borders, and a few low-level internal echoes. IMPRESSION: 9 mm mildly complex cyst at 11:00 position left breast, similar to prior exam. Additional six-month follow-up ultrasound recommended to reassess. BI-RADS CATEGORY: BI-RADS 3: Probably benign Reviewed, dictated and finalized at location .
== END 2025-02-14 08:25 | disposition home or self-care (01) ==
LOC: MICIMG 08:25
PROVIDERS: PCP Nurse Practitioner; Visit Provider Nurse Practitioner
DX: N60.02 Solitary cyst of left breast (principal)
CPT/HCPCS: 76642

== ENCOUNTER 2025-04-17 06:50 | Outpatient (CLI) | payer BC, SELFPAY ==
--- NOTE | ~2025-04-17 | MR_ITS ---
EXAMINATION: MR shoulder RT wo con DATE: 04/17/2025 07:31 INDICATION: Right shoulder pain TECHNIQUE: Magnetic resonance imaging (MRI) of the right shoulder was performed without intravenous contrast. Sequences included axial PD-weighted FS FSE, coronal oblique PD-weighted FS FSE, coronal oblique T2-weighted FS FSE, sagittal PD-weighted FS FSE, and sagittal T1-weighted SE. COMPARISON: None. FINDINGS: Coracoacromial arch: The acromion undersurface is flat in morphology (type I). The coracoacromial ligament is normal. Mild acromioclavicular osteoarthritis. Rotator cuff: Mild supraspinatus and infraspinatus tendinopathy. There is a small mild articular sided tear extending 6 mm AP along the superior facet footplate of the anterior supraspinatus tendon which involves no greater than one third of the tendon thickness. The teres minor tendon is normal. Mild subscapularis tendinopathy without tear. Normal rotator cuff muscle bulk and signal. Biceps tendon, glenoid labrum and glenohumeral cartilage: Long head of the biceps tendon is normal. There is a superior, anterior to posterior tear of the glenoid labrum (SLAP tear) beginning anteriorly at the 1:30 position extending across the superior and posterior superior labrum to the 8:00 position of the posterior labrum. The tear is most severe at the posterior superior labrum at the 10:30 position where it has a thickened macerated appearance. On the posterior rim of the glenoid with less severe partial thickness cartilage loss along the superior glenoid. Partial-thickness chondral fissure at the 2:00 position of the anterior glenoid. Partial-thickness chondral ulceration without degenerative subchondral changes along the posterior superior aspect of the humeral head. Fluid: Moderate-sized glenohumeral joint effusion which distends the axillary and deep subscapular recesses. Proportional extension of fluid along the long head biceps tendon sheath. Intermediate signal intensity filling defect within the long head biceps tendon sheath most likely related to synovitis although a loose chondral body cannot be excluded. Additional intermediate signal intensity filling defect at the axillary recess which certainly could represent a loose chondral body or synovitis. Small amount of fluid in the subacromial/subdeltoid bursa consistent with mild bursitis. Bones: Normal marrow signal with no edema, fracture or abnormal marrow replacing process. IMPRESSION: 1. Mild rotator cuff tendinopathy with small mild articular sided tear at the superior facet footplate of the distal supraspinatus tendon. 2. Mild glenohumeral osteoarthritis with moderate grade humeral and glenoid chondromalacia and large SLAP tear extending from the anterosuperior to the posterior labrum. 3. Likely reactive moderate sized glenohumeral joint effusion. 4. Mild chronic clavicular osteoarthritis with mild underlying subacromial/subdeltoid bursitis. Reviewed, dictated and finalized at location A. IMPRESSION: 1. Mild rotator cuff tendinopathy with small mild articular sided tear at the s uperior facet footplate of the distal supraspinatus tendon. 2. Mild glenohumeral osteoarthritis with moderate grade humeral and glenoid cho ndromalacia and large SLAP tear extending from the anterosuperior to the media strategist ior labrum. 3. Likely reactive moderate sized glenohumeral joint effusion. 4. Mild chronic clavicular osteoarthritis with mild underlying subacromial/subd eltoid bursitis.
== END 2025-04-17 06:51 | disposition home or self-care (01) ==
LOC: MICIMG 06:51
PROVIDERS: PCP Nurse Practitioner; Visit Provider Nurse Practitioner Family
DX: M19.011 Primary osteoarthritis, right shoulder (principal); M25.411 Effusion, right shoulder
CPT/HCPCS: 73221

== ENCOUNTER 2025-04-22 13:31 | Outpatient (CLI) | payer BC, SELFPAY ==
--- NOTE | ~2025-04-22 | XR_ITS ---
EXAMINATION: XR lg joint inject/asp w image, XR lg joint inject/asp add DATE: 04/22/2025 14:45 INDICATION: Bilateral hip arthritis TECHNIQUE: A time-out was performed to verify the patient's name, date of , and procedure to be performed. The procedure including the risks, benefits, and alternatives was discussed with the patient. Risks discussed included bleeding and infection. The patient understood the risks and agreed to proceed. Attention was first turned to the right hip joint. The skin overlying the right hip joint was prepped and draped in usual sterile fashion. Anesthetic was administered with 1% lidocaine subcutaneously. A 22 G needle was advanced under fluoroscopic guidance into the joint. Injection of 1 mL of Omnipaque 240 confirmed intra-articular position of the needle. Subsequently, injectate consisting of 3 mL of a 2:1 mixture of 0.5% bupivacaine: 80 mg/mL Depo-Medrol for a total dosage of 80 mg Depo-Medrol was instilled. Washout of contrast was seen confirming intra-articular administration. The needle was removed and the entry site was cleaned and dressed. Attention was then turned to the left hip joint. The skin overlying the left hip joint was prepped and draped in usual sterile fashion. Anesthetic was administered with 1% lidocaine subcutaneously. A 22 G needle was advanced under fluoroscopic guidance into the joint. Injection of 1 mL of Omnipaque 240 confirmed intra-articular position of the needle. Subsequently, injectate consisting of 3 mL of a 2:1 mixture of 0.5% bupivacaine: 80 mg/mL Depo-Medrol for a total dosage of 80 mg Depo-Medrol was instilled. Washout of contrast was seen confirming intra-articular administration. The needle was removed and the entry site was cleaned and dressed. There were no immediate complications. Fluoroscopy exposure time for the combined procedures was 0.2 minutes. The total number of images was 3. Total DAP for the combined procedures was 0.815 Gycm^2. FINDINGS: Real-time fluoroscopy demonstrates the needle and injected contrast first in the right hip joint. Subsequent imaging demonstrates the needle and contrast in the left hip joint. Patient's pain prior to procedure:0/10. Patient's pain following the procedure: 0/10. IMPRESSION: 1. Successful right hip joint injection of local anesthetic and steroid. 2.. Successful left hip joint injection of local anesthetic and steroid. Reviewed, dictated and finalized at location A. IMPRESSION: 1. Successful right hip joint injection of local anesthetic and steroid. 2.. Successful left hip joint injection of local anesthetic and steroid.
--- OUTSIDE RECORDS SUMMARY | 2025-04-22 15:40 | XMS_ITS | Clinical Summary ---
Author Organization [facility] Address [address] [place] [id number] Care Team Providers Care Director Business Management Name Role Phone Unavailable Primary Care Provider [...] Screening with HPV 1992 Mammogram Screening 2002 Pneumococcal Vaccine: 50+ Ye ars (1 of 1 - PCV) 2012 Zoster Vaccines (1 of 2) 2012 COVID-19 Vaccine ( - 2024-2 6 season) 2025 Influenza Adult (#1) 2025 RSV Immunization or 60+ Years (1 - 1-dose 75+ series) 2037 Hepatitis A Vaccines Aged Out No long er eligible based on patient's age to complete this topic Meningococcal B Vaccine Aged Out No l onger eligible based on patient's age to complete this topic Meningococcal Vaccine Aged Out No uriel benjie eligible based on patient's age to complete this topic RSV Immunizations Under 20 Months Aged Out No longer eligible based on patient's age to complete this topic
== END 2025-04-22 13:32 | disposition home or self-care (01) ==
PROVIDERS: PCP Nurse Practitioner; Visit Provider Nurse Practitioner Family
DX: M16.0 Bilateral primary osteoarthritis of hip (principal)
CPT/HCPCS: 20610; 77002; J1010; Q9966